=== PATIENT | female | born 1980 | race Caucasian/White ===

== ENCOUNTER 2019-01-06 08:57 | Emergency (ER) | payer OTHER ==
[2019-01-06 09:15] VITALS: TEMP 98.6
[2019-01-06] MEDS ORDERED: IPRATROPIUM-ALBUTEROL 3 ML NEB INHALATION STA (10:00)
--- NOTE | 2019-01-06 10:11 | ED ---
General Adult HPI - General Chief complaint: Shortness of Breath Stated complaint: CHEST PAIN Time Seen by Provider: 01/06/19 09:15 Source: patient, RN notes reviewed Mode of arrival: ambulatory Limitations: no limitations - History of Present Illness Initial comments: This is a 38-year-old female who presents emergency Department complaining of difficulty breathing. Patient states his been ongoing for 10 days and she was on a float down in the river. Patient states she thought she might swell some water. Patient also states she is around chemicals quite a bit and wonders if the chemicals causing his difficulty breathing. Patient states she had a history of asthma when she was a child but hasn't had it lately. Patient denies any fever chills or any sputum production. Patient states the symptoms seem to get worse when she is exerting herself. Patient denies any chest pain but when she exerted so she does get some chest tightness but has none at this time. Patient denies any calf tenderness or leg swelling. Patient denies any abdomi nal pain patient denies nausea vomiting diarrhea. Patient denies any back pain. - Related Data Home Medications Medication Instructions Recorded Confirmed Albuterol Inhaler [Ventolin Hfa 1 - 2 puff INHALATION RT-Q6H PRN 01/06/19 01/06/19 Inhaler] Multivitamins, Thera [Multivitamin 1 tab PO DAILY 01/06/19 01/06/19 (formulary)] Omeprazole 20 mg PO Q48H 01/06/19 01/06/19 Previous Rx's Medication Instructions Recorded Albuterol Inhaler [Ventolin Hfa 1 - 2 puff INHALATION Q6HR PRN #2 01/06/19 Inhaler] puff Allergies Allergy/AdvReac Type Severity Reaction Status Date / Time dexamethasone [From Decadron] Allergy Anaphylaxis Verified 01/06/19 09:42 NSAIDS (Non-Steroidal Allergy Swelling Verified 01/06/19 09:42 Anti-Inflamma Review of Systems ROS Statement: Those systems with pertinent positive or pertinent negative responses have been documented in the HPI. ROS Other: All systems not noted in ROS Statement are negative. Past Medical History Past Medical History: Asthma History of Any Multi-Drug Resistant Organisms: None Reported Past Surgical History: No Surgical Hx Reported Past Psychological History: Anxiety Smoking Status: Current every day smoker Past Alcohol Use History: None Reported Past Drug Use History: None Reported General Exam - General Exam Comments Initial Comments: GENERAL: Patient is well-developed and well-nourished. Patient is nontoxic and well- hydrated and is in mild distress. ENT: Neck is soft and supple. No significant lymphadenopathy is noted. Oropharynx is clear. Moist mucous membranes. Neck has full range of motion without eliciting any pain. EYES: The sclera were anicteric and conjunctiva were pink and moist. Extraocular movements were intact and pupils were equal round and reactive to light. Eyelids were unremarkable. PULMONARY: Unlabored respirations. Slightly decreased breath sounds. No audible rales rhonchi or wheezing was noted. CARDIOVASCULAR: There is a regular rate and rhythm without any murmurs gallops or rubs. ABDOMEN: Soft and nontender with normal bowel sounds. No palpable organomegaly was noted. There is no palpable pulsatile mass. SKIN: Skin is clear with no lesions or rashes and otherwise unremarkable. NEUROLOGIC: Patient is alert and oriented x3. Cranial nerves II through XII are grossly intact. Motor and sensory are also intact. Normal speech, volume and content. Symmetrical smile. MUSCULOSKELETAL: Normal extremities with adequate strength and full range of motion. No lower extremity swelling or edema. No calf tenderness. LYMPHATICS: No significant lymphadenopathy is noted PSYCHIATRIC: Normal psychiatric evaluation. Limitations: no limitations Course Vital Signs 01/06/19 01/06/19 01/06/19 09:11 10:53 11:03 Temperature 98.6 F Pulse Rate 90 92 97 Respiratory 20 Rate Blood Pressure 137/92 O2 Sat by Pulse 98 Oximetry Medical Decision Making - Medical Decision Making EKG shows normal sinus rhythm at 79 bpm WA interval 270 QRS is 86 QT interval 380 QTC is 435. Patient's EKG shows no ST segment elevation or depression or T- wave abdomen is noted. Chest x-ray showed no acute abnormality. Patient has a high white count at 17 I spoke with her about that she stated that she has had that for quite a while anytime she gets her blood drawn. Patient did receive albuterol and Atrovent in the emergency department and it seemed to help her significantly. - Lab Data Result diagrams: 01/06/19 11:36 01/06/19 11:36 Lab Results 01/06/19 01/06/19 01/06/19 Range/Units 11:36 11:36 11:36 WBC 17.5 H (3.8-10.6) k/uL RBC 5.52 H (3.80-5.40) m/uL Hgb 16.3 H (11.4-16.0) gm/dL Hct 49.0 H (34.0-46.0) % MCV 88.8 (80.0-100.0) fL MCH 29.5 (25.0-35.0) pg MCHC 33.2 (31.0-37.0) g/dL RDW 15.1 (11.5-15.5) % Plt Count 284 (150-450) k/uL Neutrophils % 63 % Lymphocytes % 29 % Monocytes % 4 % Eosinophils % 2 % Basophils % 1 % Neutrophils # 10.9 H (1.3-7.7) k/uL Lymphocytes # 5.1 H (1.0-4.8) k/uL Monocytes # 0.7 (0-1.0) k/uL Eosinophils # 0.4 (0-0.7) k/uL Basophils # 0.1 (0-0.2) k/uL PT 9.3 (9.0-12.0) sec INR 0.8 (<1.2) APTT 24.5 (22.0-30.0) sec D-Dimer 0.39 (<0.60) mg/L FEU Sodium 139 (137-145) mmol/L Potassium 4.7 (3.5-5.1) mmol/L Chloride 104 (98-107) mmol/L Carbon Dioxide 28 (22-30) mmol/L Anion Gap 7 mmol/L BUN 14 (7-17) mg/dL Creatinine 0.72 (0.52-1.04) mg/dL Est GFR (CKD-EPI)AfAm >90 (>60 ml/min/1.73 sqM) Est GFR (CKD-EPI)NonAf >90 (>60 ml/min/1.73 sqM) Glucose 95 (74-99) mg/dL Calcium 9.9 (8.4-10.2) mg/dL Total Bilirubin 0.3 (0.2-1.3) mg/dL AST 24 (14-36) U/L ALT 28 (9-52) U/L Alkaline Phosphatase 87 (38-126) U/L Troponin I (0.000-0.034) ng/mL Total Protein 7.6 (6.3-8.2) g/dL Albumin 4.4 (3.5-5.0) g/dL 01/06/19 Range/Units 11:36 WBC (3.8-10.6) k/uL RBC (3.80-5.40) m/uL Hgb (11.4-16.0) gm/dL Hct (34.0-46.0) % MCV (80.0-100.0) fL MCH (25.0-35.0) pg MCHC (31.0-37.0) g/dL RDW (11.5-15.5) % Plt Count (150-450) k/uL Neutrophils % % Lymphocytes % % Monocytes % % Eosinophils % % Basophils % % Neutrophils # (1.3-7.7) k/uL Lymphocytes # (1.0-4.8) k/uL Monocytes # (0-1.0) k/uL Eosinophils # (0-0.7) k/uL Basophils # (0-0.2) k/uL PT (9.0-12.0) sec INR (<1.2) APTT (22.0-30.0) sec D-Dimer (<0.60) mg/L FEU Sodium (137-145) mmol/L Potassium (3.5-5.1) mmol/L Chloride (98-107) mmol/L Carbon Dioxide (22-30) mmol/L Anion Gap mmol/L BUN (7-17) mg/dL Creatinine (0.52-1.04) mg/dL Est GFR (CKD-EPI)AfAm (>60 ml/min/1.73 sqM) Est GFR (CKD-EPI)NonAf (>60 ml/min/1.73 sqM) Glucose (74-99) mg/dL Calcium (8.4-10.2) mg/dL Total Bilirubin (0.2-1.3) mg/dL AST (14-36) U/L ALT (9-52) U/L Alkaline Phosphatase (38-126) U/L Troponin I <0.012 (0.000-0.034) ng/mL Total Protein (6.3-8.2) g/dL Albumin (3.5-5.0) g/dL Disposition Clinical Impression: Dyspnea Disposition: HOME SELF-CARE Instructions (If sedation given, give patient instructions): Dyspnea (ED) Prescriptions: Albuterol Inhaler [Ventolin Hfa Inhaler] 1 - 2 puff INHALATION Q6HR PRN #2 puff PRN Reason: Difficulty breathing Is patient prescribed a controlled substance at d/c from ED?: No Referrals: Jerman Soriano MD [Primary Care Provider] - 1-2 days Time of Disposition: 13:00
[2019-01-06 11:50] LABS: Basophils # (A) 0.1 k/uL (0-0.2); Basophils % (A) 1 %; Eosinophils # (A) 0.4 k/uL (0-0.7); Eosinophils % (A) 2 %; HGB 16.3 gm/dL (11.4-16.0); Lymphocytes # (A) 5.1 k/uL (1.0-4.8); Lymphocytes % (A) 29 %; MCH 29.5 pg (25.0-35.0); MCHC 33.2 g/dL (31.0-37.0); MCV 88.8 fL (80.0-100.0); Mean Platelet Volume 6.5; Monocytes # (A) 0.7 k/uL (0-1.0); Monocytes % (A) 4 %; Neutrophils # (A) 10.9 k/uL (1.3-7.7); Neutrophils % (A) 63 %; Platelet Count 284 k/uL (150-450); RBC 5.52 m/uL (3.80-5.40); RDW 15.1 % (11.5-15.5); WBC 17.5 k/uL (3.8-10.6)
[2019-01-06 11:57] LABS: ALT 28 U/L (9-52); AST 24 U/L (14-36); African American GFR (CKD) >90 (>60 ml/min/1.73 sqM); Albumin 4.4 g/dL (3.5-5.0); Alkaline Phosphatase 87 U/L (38-126); Anion Gap 7 mmol/L; Blood Urea Nitrogen 14 mg/dL (7-17); Calcium 9.9 mg/dL (8.4-10.2); Carbon Dioxide 28 mmol/L (22-30); Chloride 104 mmol/L (98-107); Glucose 95 mg/dL (74-99); Potassium 4.7 mmol/L (3.5-5.1); Sodium 139 mmol/L (137-145); Total Bilirubin 0.3 mg/dL (0.2-1.3); Total Protein 7.6 g/dL (6.3-8.2)
--- NOTE | 2019-01-06 11:58 | XR ---
EXAMINATION TYPE: XR chest 2V DATE OF EXAM: 01/06/2019 COMPARISON: NONE HISTORY: History of asthma and occupational exposure to chemicals with difficulty in breathing. TECHNIQUE: Frontal and lateral views of the chest are obtained. FINDINGS: Somewhat low lung volumes are present. There is no focal air space opacity, pleural effusi on, or pneumothorax seen. The cardiac silhouette size is within normal limits. The osseous structu res are intact. IMPRESSION: No suspicious acute pulmonary process.
[2019-01-06 12:05] LABS: D-Dimer 0.39 mg/L FEU (<0.60); INR 0.8 (<1.2); Partial Thromboplastin Time 24.5 sec (22.0-30.0); Prothrombin Time 9.3 sec (9.0-12.0)
[2019-01-06 13:27] VITALS: BP 146/88; PULSE 84; RESP 18
== END 2019-01-06 13:27 | disposition home or self-care (01) ==
LOC: EC 08:57
DX: R06.00 Dyspnea, unspecified (principal); R06.02 Shortness of breath; R07.89 Other chest pain; J45.909 Unspecified asthma, uncomplicated; F17.200 Nicotine dependence, unspecified, uncomplicated; Z79.899 Other long term (current) drug therapy; Z88.6 Allergy status to analgesic agent; Z88.8 Allergy status to other drugs, medicaments and biological substances
CPT/HCPCS: 36415; 71046; 80053; 84484; 85025; 85379; 85610; 85730; 93005; 94640; 99285

== ENCOUNTER 2019-01-25 21:14 | Emergency (ER) | payer OTHER ==
[2019-01-25] MEDS ORDERED: ONDANSETRON 4 MG/2 ML VIAL IVP STA (22:07)
[2019-01-25 22:23] LABS: Basophils # (A) 0.1 k/uL (0-0.2); Basophils % (A) 1 %; Eosinophils # (A) 0.4 k/uL (0-0.7); Eosinophils % (A) 3 %; HCT 47.4 % (34.0-46.0); Lymphocytes # (A) 4.6 k/uL (1.0-4.8); Lymphocytes % (A) 33 %; MCH 29.3 pg (25.0-35.0); MCHC 33.7 g/dL (31.0-37.0); MCV 87.1 fL (80.0-100.0); Mean Platelet Volume 6.9; Monocytes # (A) 0.6 k/uL (0-1.0); Monocytes % (A) 4 %; Neutrophils # (A) 7.9 k/uL (1.3-7.7); Neutrophils % (A) 57 %; Platelet Count 270 k/uL (150-450); RBC 5.44 m/uL (3.80-5.40); RDW 14.9 % (11.5-15.5); WBC 13.7 k/uL (3.8-10.6)
[2019-01-25 22:27] LABS: Appearance,Urine Cloudy (Clear); Bacteria,Urine Rare /hpf; Bilirubin,Urine Negative (Negative); Blood,Urine Negative (Negative); Color,Urine Yellow; Glucose,Urine (UA) Negative (Negative); Ketones,Urine Negative (Negative); Leukocyte Esterase,Urine Negative (Negative); Mucus,Urine Rare /hpf; Nitrite,Urine Negative (Negative); PH, Urine 8.5 (5.0-8.0); Protein,Urine Trace (Negative); RBC,Urine 7 /hpf (0-5); Renal Epithelial Cells,Urine 3 /hpf (0); Specific Gravity,Urine 1.018 (1.001-1.035); Squamous Epithelial Cell,Urine 11 /hpf (0-4); Urobilinogen,Urine <2.0 mg/dL (<2.0); WBC,Urine 1 /hpf (0-5)
[2019-01-25 22:31] LABS: ALT 42 U/L (9-52); AST 38 U/L (14-36); African American GFR (CKD) >90 (>60 ml/min/1.73 sqM); Albumin 4.5 g/dL (3.5-5.0); Alkaline Phosphatase 69 U/L (38-126); Amylase 52 U/L (30-110); Anion Gap 11 mmol/L; Blood Urea Nitrogen 11 mg/dL (7-17); Calcium 9.7 mg/dL (8.4-10.2); Carbon Dioxide 24 mmol/L (22-30); Chloride 106 mmol/L (98-107); Glucose 105 mg/dL (74-99); Potassium 4.3 mmol/L (3.5-5.1); Sodium 141 mmol/L (137-145); Total Bilirubin 0.3 mg/dL (0.2-1.3); Total Protein 7.6 g/dL (6.3-8.2)
[2019-01-25] MEDS ORDERED: HYDROmorphone 0.5 MG/0.5 ML SYRINGE IVP STA (22:57)
--- NOTE | 2019-01-25 23:28 | US ---
EXAM: US Abdomen Limited, Right Upper Quadrant CLINICAL HISTORY: ITS.REASON US Reason: abdominal pain TECHNIQUE: Real-time ultrasound of the right upper quadrant with image documentation. COMPARISON: No relevant prior studies available. FINDINGS: Liver: Increased echogenicity. No mass. No intrahepatic bile duct dilation. Gallbladder: No gallstones. No pericholecystic fluid. No gallbladder wall thickening. Common bile duct: Unremarkable. No stones. No dilation. Pancreas: Obscured. Right kidney: No stones. No solid mass. No hydronephrosis. IMPRESSION: Hepatic steatosis.
[2019-01-26 00:06] VITALS: RESP 18
--- NOTE | 2019-01-26 01:29 | CT ---
EXAM: CT Abdomen and Pelvis With Intravenous Contrast CLINICAL HISTORY: ITS.REASON CT Reason: RUQ pain, n/v TECHNIQUE: Axial computed tomography images of the abdomen and pelvis with intravenous contrast. CTDI is 18 mGy and DLP is 1041 mGy-cm. This CT exam was performed using one or more of the following dose reduction techniques: automated exposure control, adjustment of the mA and/or kV according to patient size, and/or use of iterative reconstruction technique. COMPARISON: 01/25/19 ultrasound FINDINGS: Lung bases: No mass. No consolidation. ABDOMEN: Liver: Enlarged with steatosis. Gallbladder and bile ducts: 2 cm round lesion at the tip of the gallbladder fundus (series 201 image 37 and 38). Pancreas: Unremarkable. Spleen: Unremarkable. Adrenals: Unremarkable. Kidneys and ureters: No hydronephrosis. Stomach and bowel: No bowel obstruction. No bowel wall thickening. PELVIS: Appendix: No evidence of appendicitis. Bladder: Unremarkable. Reproductive: Unremarkable. ABDOMEN and PELVIS: Intraperitoneal space: Unremarkable. Bones/joints: No acute fractures. Mild degenerative changes with vacuum phenomenon at L4-5. Mild disc bulging. No signal can spinal canal stenosis. Soft tissues: Unremarkable. Vasculature: No abdominal aortic aneurysm. Lymph nodes: No enlarged lymph nodes. IMPRESSION: 1. Hepatomegaly with steatosis. 2. At the tip gallbladder fundus, there is a 2 cm round lesion. This may be a lesion Versus a phrygian cap/fold. This was not described on the ultrasound. Indeterminate process. Recommend ultrasound in 6 months as potential follow-up. 3. No biliary dilatation. No acute findings.
--- NOTE | 2019-01-26 01:49 | ED ---
Abdominal Pain HPI - General Chief Complaint: Abdominal Pain Stated Complaint: Abd pain Time Seen by Provider: 01/25/19 21:27 Source: patient Mode of arrival: ambulatory Limitations: no limitations - History of Present Illness Initial Comments: Patient is a 38-year-old female presenting to the emergency department with a chief complaint of abdominal pain. Patient reports intermittent epigastric pain for approximately 15 years which has increased over the last 4 days. The pain has been coming and going. Patient reports the pain occurs specifically after oral intake of solids or liquids. Patient reports she develops a "hard ball" in the epigastric region and then it is disappears. Patient reports the pain is alleviated in position and exacerbated with any other movement. Patient reports nausea over the past 2 days with one episode of vomiting. Patient denies any diarrhea. Patient denies hemoptysis, hematochezia or melena. Patien t denies any vaginal discharge or bleeding. Patient reports she was diagnosed with a "gallbladder problem" about 15 years ago and there was plans to remove the gallbladder multiple times but it was not performed. Patient reports a anytime she develops an acute abdominal pain is likely to be the gallbladder. - Related Data Home Medications Medication Instructions Recorded Confirmed Albuterol Inhaler [Ventolin Hfa 1 - 2 puff INHALATION RT-Q6H PRN 01/06/1912/12 Inhaler] Multivitamins, Thera [Multivitamin 1 tab PO DAILY 01/06/19 01/06/19 (formulary)] Omeprazole 20 mg PO Q48H 01/06/19 01/06/19 Previous Rx's Medication Instructions Recorded Albuterol Inhaler [Ventolin Hfa 1 - 2 puff INHALATION Q6HR PRN #2 01/06/19 Inhaler] puff Dicyclomine [Bentyl] 20 mg PO TID #30 tablet 01/26/19 Ondansetron Odt [Zofran Odt] 4 mg PO Q8HR PRN #20 tab 01/26/19 Allergies Allergy/AdvReac Type Severity Reaction Status Date / Time dexamethasone [From Decadron] Allergy Anaphylaxis Verified 01/25/19 21:18 NSAIDS (Non-Steroidal Allergy Swelling Verified 01/25/19 21:18 Anti-Inflamma Review of Systems ROS Statement: Those systems with pertinent positive or pertinent negative responses have been documented in the HPI. ROS Other: All systems not noted in ROS Statement are negative. Past Medical History Past Medical History: Asthma History of Any Multi-Drug Resistant Organisms: None Reported Past Surgical History: No Surgical Hx Reported Past Psychological History: Anxiety Smoking Status: Current every day smoker Past Alcohol Use History: None Reported Past Drug Use History: None Reported General Exam Limitations: no limitations General appearance: alert, in no apparent distress Head exam: Present: atraumatic, normocephalic, normal inspection Eye exam: Present: normal appearance, PERRL, EOMI Pupils: Present: normal accommodation ENT exam: Present: normal exam, normal oropharynx, mucous membranes moist, TM's normal bilaterally, normal external ear exam Neck exam: Present: normal inspection, full ROM Respiratory exam: Present: normal lung sounds bilaterally Cardiovascular Exam: Present: regular rate, normal rhythm, normal heart sounds GI/Abdominal exam: Present: soft, tenderness (Epigastric. Positive Atkinson sign.), normal bowel sounds. Absent: guarding, rebound, mass Extremities exam: Present: normal inspection, full ROM Back exam: Present: normal inspection, full ROM. Absent: CVA tenderness (R), CVA tenderness (L) Neurological exam: Present: alert, oriented X3 Psychiatric exam: Present: normal affect, normal mood Skin exam: Present: warm, intact, normal color Course Vital Signs 01/25/19 01/26/19 01/26/19 21:16 00:04 02:33 Temperature 98.5 F 98.6 F Pulse Rate 88 72 65 Respiratory 20 18 18 Rate Blood Pressure 120/85 120/75 109/69 O2 Sat by Pulse 98 97 97 Oximetry Medical Decision Making - Medical Decision Making Patient is a 38-year-old male presenting to emergency Department with a chief complaint of abdominal pain. Patient has had gallbladder-related problems for approximately 15 years which is only been increased over the last 4 days. Patient reports pain is located in the epigastric region and exacerbated by any by mouth fluid or solid intake. Patient does report nausea and 1 episode of vomiting. Patient was given fluids, antiemetics and analgesia. CBC is indicative of mild leukocytosis. CMP is unremarkable. UA is unremarkable except for mild elevation in pH. Right upper quadrant ultrasound is unremarkable. CT abdomen and pelvis is indicative of hepatomegaly with steatosis. Also there is a 2 cm lesion at the fundus of the gallbladder which c ould also be a phyringian cap. I suspect the patient to have the pain due to the gallbladder pathology. On reevaluation patient reports she feels better and is ready go home. Patient given Bentyl Tylenol 3 and Zofran. Patient advised to follow-up with Gen. surgery. Strict return parameters were thoroughly discussed with patient was understanding and agreeable. Case discussed physician. - Lab Data Result diagrams: 01/25/19 22:10 01/25/19 22:10 Lab Results 01/25/19 01/25/19 01/25/19 Range/Units 22:10 22:10 22:10 WBC 13.7 H (3.8-10.6) k/uL RBC 5.44 H (3.80-5.40) m/uL Hgb 16.0 (11.4-16.0) gm/dL Hct 47.4 H (34.0-46.0) % MCV 87.1 (80.0-100.0) fL MCH 29.3 (25.0-35.0) pg MCHC 33.7 (31.0-37.0) g/dL RDW 14.9 (11.5-15.5) % Plt Count 270 (150-450) k/uL Neutrophils % 57 % Lymphocytes % 33 % Monocytes % 4 % Eosinophils % 3 % Basophils % 1 % Neutrophils # 7.9 H (1.3-7.7) k/uL Lymphocytes # 4.6 (1.0-4.8) k/uL Monocytes # 0.6 (0-1.0) k/uL Eosinophils # 0.4 (0-0.7) k/uL Basophils # 0.1 (0-0.2) k/uL Sodium 141 (137-145) mmol/L Potassium 4.3 (3.5-5.1) mmol/L Chloride 106 (98-107) mmol/L Carbon Dioxide 24 (22-30) mmol/L Anion Gap 11 mmol/L BUN 11 (7-17) mg/dL Creatinine 0.71 (0.52-1.04) mg/dL Est GFR (CKD-EPI)AfAm >90 (>60 ml/min/1.73 sqM) Est GFR (CKD-EPI)NonAf >90 (>60 ml/min/1.73 sqM) Glucose 105 H (74-99) mg/dL Calcium 9.7 (8.4-10.2) mg/dL Total Bilirubin 0.3 (0.2-1.3) mg/dL AST 38 H (14-36) U/L ALT 42 (9-52) U/L Alkaline Phosphatase 69 (38-126) U/L Total Protein 7.6 (6.3-8.2) g/dL Albumin 4.5 (3.5-5.0) g/dL Amylase 52 (30-110) U/L Lipase 85 (23-300) U/L Urine Color Yellow Urine Appearance Cloudy H (Clear) Urine pH 8.5 H (5.0-8.0) Ur Specific [place] 1.018 (1.001-1.035) Urine Protein Trace H (Negative) Urine Glucose (UA) Negative (Negative) Urine Ketones Negative (Negative) Urine Blood Negative (Negative) Urine Nitrite Negative (Negative) Urine Bilirubin Negative (Negative) Urine Urobilinogen <2.0 (<2.0) mg/dL Ur Leukocyte Esterase Negative (Negative) Urine RBC 7 H (0-5) /hpf Urine WBC 1 (0-5) /hpf Ur Squamous Epith Cells 11 H (0-4) /hpf Ur Renal Epithelial Cell 3 (0) /hpf Urine Bacteria Rare H (None) /hpf Urine Mucus Rare H (None) /hpf Urine HCG, Qual (Not Detectd) 01/25/19 Range/Units 22:10 WBC (3.8-10.6) k/uL RBC (3.80-5.40) m/uL Hgb (11.4-16.0) gm/dL Hct (34.0-46.0) % MCV (80.0-100.0) fL MCH (25.0-35.0) pg MCHC (31.0-37.0) g/dL RDW (11.5-15.5) % Plt Count (150-450) k/uL Neutrophils % % Lymphocytes % % Monocytes % % Eosinophils % % Basophils % % Neutrophils # (1.3-7.7) k/uL Lymphocytes # (1.0-4.8) k/uL Monocytes # (0-1.0) k/uL Eosinophils # (0-0.7) k/uL Basophils # (0-0.2) k/uL Sodium (137-145) mmol/L Potassium (3.5-5.1) mmol/L Chloride (98-107) mmol/L Carbon Dioxide (22-30) mmol/L Anion Gap mmol/L BUN (7-17) mg/dL Creatinine (0.52-1.04) mg/dL Est GFR (CKD-EPI)AfAm (>60 ml/min/1.73 sqM) Est GFR (CKD-EPI)NonAf (>60 ml/min/1.73 sqM) Glucose (74-99) mg/dL Calcium (8.4-10.2) mg/dL Total Bilirubin (0.2-1.3) mg/dL AST (14-36) U/L ALT (9-52) U/L Alkaline Phosphatase (38-126) U/L Total Protein (6.3-8.2) g/dL Albumin (3.5-5.0) g/dL Amylase (30-110) U/L Lipase (23-300) U/L Urine Color Urine Appearance (Clear) Urine pH (5.0-8.0) Ur Specific [place] (1.001-1.035) Urine Protein (Negative) Urine Glucose (UA) (Negative) Urine Ketones (Negative) Urine Blood (Negative) Urine Nitrite (Negative) Urine Bilirubin (Negative) Urine Urobilinogen (<2.0) mg/dL Ur Leukocyte Esterase (Negative) Urine RBC (0-5) /hpf Urine WBC (0-5) /hpf Ur Squamous Epith Cells (0-4) /hpf Ur Renal Epithelial Cell (0) /hpf Urine Bacteria (None) /hpf Urine Mucus (None) /hpf Urine HCG, Qual Not Detected (Not Detectd) Disposition Clinical Impression: RUQ abdominal pain Disposition: HOME SELF-CARE Condition: Stable Instructions (If sedation given, give patient instructions): Abdominal Pain (ED) Additional Instructions: Please take prescribed medication as directed. Please follow up with a general surgeon. Please return to emergency department if symptoms worsen. Prescriptions: Dicyclomine [Bentyl] 20 mg PO TID #30 tablet Ondansetron Odt [Zofran Odt] 4 mg PO Q8HR PRN #20 tab PRN Reason: Nausea Is patient prescribed a controlled substance at d/c from ED?: No Referrals: Jerman Soriano MD [Primary Care Provider] - 1-2 days Krishna Tran MD [Medical Doctor] - 1-2 days Zack Paul MD [STAFF PHYSICIAN] - 1-2 days Rebeca Costello MD [STAFF PHYSICIAN] - 1-2 days Time of Disposition: 02:13
[2019-01-26] MEDS ORDERED: HYDROmorphone 0.5 MG/0.5 ML SYRINGE IVP STA (02:06)
[2019-01-26] MEDS ORDERED: ONDANSETRON 4 MG/2 ML VIAL IVP STA (02:06)
[2019-01-26] MEDS ORDERED: ACET/COD 300 MG/30 MG STARTER PACK 6 TAB BTL PO STA (02:09)
[2019-01-26] MEDS ORDERED: ONDANSETRON 4 MG ODT STARTER PACK 2 TAB BTL PO STA (02:09)
[2019-01-26 02:34] VITALS: BP 109/69; PULSE 65; TEMP 98.6
== END 2019-01-26 02:38 | disposition home or self-care (01) ==
LOC: EC 21:14
DX: R11.2 Nausea with vomiting, unspecified (principal); D72.829 Elevated white blood cell count, unspecified; J45.909 Unspecified asthma, uncomplicated; F17.200 Nicotine dependence, unspecified, uncomplicated; Z79.899 Other long term (current) drug therapy; Z88.8 Allergy status to other drugs, medicaments and biological substances; Z88.6 Allergy status to analgesic agent
CPT/HCPCS: 36415; 80053; 82150; 83690; 85025; 81001; 81025; 76705; 74177; 99284; 96374; 96375; 96376 ×2; J2405 ×2; S0119; J1170 ×2; Q9967

== ENCOUNTER 2019-02-17 21:46 | Emergency (ER) | payer OTHER ==
[2019-02-17] MEDS ORDERED: SODIUM CHLORIDE 0.9% 1,000 ML IV ONE ×2 (22:22→23:07)
[2019-02-17] MEDS ORDERED: FAMOTIDINE 20 MG/2 ML VIAL IV STA (22:22)
[2019-02-17] MEDS ORDERED: diphenhydrAMINE 50 MG/ML 1 ML VIAL IVP STA (22:22)
--- NOTE | 2019-02-17 22:27 | ED ---
Allergic Reaction HPI - General Chief complaint: Allergic Reaction Stated complaint: allergic reaction Time Seen by Provider: 02/17/19 21:52 Source: patient, RN notes reviewed, old records reviewed Mode of arrival: ambulatory Limitations: no limitations - History of Present Illness Initial Comments: This patient's a 38-year-old female presents rest tremor today for concerns for ALLERGIC reaction related to an IM Decadron shot she received yesterday at 4 PM. Patient reportedly had a red face, following some chest warmness in and just general discomfort. Patient reports that he received multiple steroid injections in her feet due to tendinitis. Patient states that she's had a known history of reactions to steroids and does not know why she was given this. Patient complains of feeling dry mouth, and very thirsty. Patient states that she hasn't had any Benadryl.Patient denies any recent fever, chills, shortness of breath, chest pain, back pain, abdominal pain, nausea vomiting, numbness or tingling, dysuria or hematuria, constipation or diarrhea, headac or any other current symptoms - Related Data Home Medications Medication Instructions Recorded Confirmed Albuterol Inhaler [Ventolin Hfa 1 - 2 puff INHALATION RT-Q6H PRN 01/06/19 01/06/19 Inhaler] Multivitamins, Thera [Multivitamin 1 tab PO DAILY 01/06/19 01/06/19 (formulary)] Omeprazole 20 mg PO Q48H 01/06/19 01/06/19 Previous Rx's Medication Instructions Recorded Albuterol Inhaler [Ventolin Hfa 1 - 2 puff INHALATION Q6HR PRN #2 01/06/19 Inhaler] puff Dicyclomine [Bentyl] 20 mg PO TID #30 tablet 01/26/19 Ondansetron Odt [Zofran Odt] 4 mg PO Q8HR PRN #20 tab 01/26/19 Allergies Allergy/AdvReac Type Severity Reaction Status Date / Time dexamethasone [From Decadron] Allergy Anaphylaxis Verified 02/17/19 21:50 NSAIDS (Non-Steroidal Allergy Swelling Verified 02/17/19 21:50 Anti-Inflamma Review of Systems ROS Statement: Those systems with pertinent positive or pertinent negative responses have been documented in the HPI. ROS Other: All systems not noted in ROS Statement are negative. Past Medical History Past Medical History: Asthma History of Any Multi-Drug Resistant Organisms: None Reported Past Surgical History: No Surgical Hx Reported Past Psychological History: Anxiety Smoking Status: Current every day smoker Past Alcohol Use History: None Reported Past Drug Use History: None Reported General Exam - General Exam Comments Initial Comments: 38-year-old female. Flushed face. Patient appears somewhat anxious. General: Well appearing, well nourished, in no distress. Oriented x 3, normal mood and affect . Ambulating without difficulty. Skin: Good turgor, flushed erythematous face. Hair: Normal texture and distribution. HEENT: Head: Normocephalic, atraumatic, no visible or palpable masses, depre ssions, or scaring. Eyes: Visual acuity intact, conjunctiva clear, sclera non-icteric, EOM intact, PERRL. Ears: EACs clear, TMs translucent & cone of light visualized. hearing intact. Nose: No external lesions, mucosa non-inflamed, septum and turbinates normal Mouth: Mucous membranes moist, no mucosal lesions. Teeth/Gums: No obvious caries or periodontal disease. No gingival inflammation or significant resorption. Pharynx: Mucosa non-inflamed, no tonsillar hypertrophy or exudate Neck: Supple, without lesions, bruits, or adenopathy, thyroid non-enlarged and non-tender Heart: No cardiomegaly or thrills; regular rate and rhythm, no murmur or gallop Lungs: Clear to auscultation and percussion Abdomen: Bowel sounds normal, no tenderness, organomegaly, masses, or hernia Back: Spine normal without deformity or tenderness, no CVA tenderness Musculoskeletal: Normal gait and station. No misalignment, asymmetry, crepitation, defects, tenderness, masses, effusions, decreased range of motion, instability, atrophy or abnormal strength or tone in the head, neck, spine, ribs, pelvis or extremities. Neurologic: CN 2-12 normal. Sensation to pain, touch, and proprioception normal. DTRs normal in upper and lower extremities. No pathologic reflexes. Psychiatric: Oriented X3, intact recent and remote memory, judgment and insight, normal mood and affect. Limitations: no limitations Course Vital Signs 02/17/19 02/17/19 02/18/19 21:48 22:50 00:50 Temperature 97.9 F 98.2 F Pulse Rate 103 H 95 82 Respiratory 20 18 18 Rate Blood Pressure 131/73 134/87 109/60 O2 Sat by Pulse 97 98 99 Oximetry Medical Decision Making - Medical Decision Making Patient is a 38-year-old female presents for concern for reaction related to IM steroids. She had injections yesterday for bilateral feet pain and tendinitis. Patient with complaint of general flushed feeling generally feeling unwell. She states she is very thirsty. Patient's given an IV fluids and lab work obtained. Patient's labs show evidence of leukocytosis. Likely related to steroid use. EKG shows no acute changes. Should have an elevated blood glucose of 260. This also could be related to the recent steroid use. She's not a known history of diabetes. She also does have "glucose in her urine. I discussed the findings with the Patient. Discussed that she needs a prompt follow-up with her primary care doctor to have this rechecked on steroids or out of her system. Discussed the importance of hydration. She is given a 2 L bolus while in the ED and Benadryl. She states that she feels much better at this time. I discussed that if she had any further complaints return to the ER for reevaluation. WERE ANSWERED. - Lab Data Result diagrams: 02/17/19 22:38 02/17/19 22:38 Lab Results 02/17/19 02/17/19 02/17/19 Range/Units 00:30 22:38 22:38 WBC 29.2 H (3.8-10.6) k/uL RBC 5.11 (3.80-5.40) m/uL Hgb 15.1 (11.4-16.0) gm/dL Hct 47.0 H (34.0-46.0) % MCV 92.1 D (80.0-100.0) fL MCH 29.5 (25.0-35.0) pg MCHC 32.1 (31.0-37.0) g/dL RDW 13.1 (11.5-15.5) % Plt Count 290 (150-450) k/uL Neutrophils % 81 % Lymphocytes % 11 % Monocytes % 4 % Eosinophils % 1 % Basophils % 1 % Neutrophils # 23.7 H (1.3-7.7) k/uL Lymphocytes # 3.3 (1.0-4.8) k/uL Monocytes # 1.3 H (0-1.0) k/uL Eosinophils # 0.2 (0-0.7) k/uL Basophils # 0.4 H (0-0.2) k/uL PT (9.0-12.0) sec INR (<1.2) APTT (22.0-30.0) sec Sodium 137 (137-145) mmol/L Potassium 4.3 (3.5-5.1) mmol/L Chloride 106 (98-107) mmol/L Carbon Dioxide 21 L (22-30) mmol/L Anion Gap 10 mmol/L BUN 17 (7-17) mg/dL Creatinine 0.81 (0.52-1.04) mg/dL Est GFR (CKD-EPI)AfAm >90 (>60 ml/min/1.73 sqM) Est GFR (CKD-EPI)NonAf >90 (>60 ml/min/1.73 sqM) Glucose 265 H (74-99) mg/dL Calcium 9.5 (8.4-10.2) mg/dL Magnesium 2.1 (1.6-2.3) mg/dL Total Bilirubin 0.2 (0.2-1.3) mg/dL AST 25 (14-36) U/L ALT 24 (9-52) U/L Alkaline Phosphatase 98 (38-126) U/L Troponin I (0.000-0.034) ng/mL Total Protein 7.1 (6.3-8.2) g/dL Albumin 4.2 (3.5-5.0) g/dL Urine Color Light Yellow Urine Appearance Clear (Clear) Urine pH 6.5 (5.0-8.0) Ur Specific [place] 1.010 (1.001-1.035) Urine Protein Negative (Negative) Urine Glucose (UA) 3+ H (Negative) Urine Ketones Negative (Negative) Urine Blood Negative (Negative) Urine Nitrite Negative (Negative) Urine Bilirubin Negative (Negative) Urine Urobilinogen <2.0 (<2.0) mg/dL Ur Leukocyte Esterase Negative (Negative) 02/17/19 02/17/19 Range/Units 22:38 22:38 WBC (3.8-10.6) k/uL RBC (3.80-5.40) m/uL Hgb (11.4-16.0) gm/dL Hct (34.0-46.0) % MCV (80.0-100.0) fL MCH (25.0-35.0) pg MCHC (31.0-37.0) g/dL RDW (11.5-15.5) % Plt Count (150-450) k/uL Neutrophils % % Lymphocytes % % Monocytes % % Eosinophils % % Basophils % % Neutrophils # (1.3-7.7) k/uL Lymphocytes # (1.0-4.8) k/uL Monocytes # (0-1.0) k/uL Eosinophils # (0-0.7) k/uL Basophils # (0-0.2) k/uL PT 9.5 (9.0-12.0) sec INR 0.9 (<1.2) APTT 23.3 (22.0-30.0) sec Sodium (137-145) mmol/L Potassium (3.5-5.1) mmol/L Chloride (98-107) mmol/L Carbon Dioxide (22-30) mmol/L Anion Gap mmol/L BUN (7-17) mg/dL Creatinine (0.52-1.04) mg/dL Est GFR (CKD-EPI)AfAm (>60 ml/min/1.73 sqM) Est GFR (CKD-EPI)NonAf (>60 ml/min/1.73 sqM) Glucose (74-99) mg/dL Calcium (8.4-10.2) mg/dL Magnesium (1.6-2.3) mg/dL Total Bilirubin (0.2-1.3) mg/dL AST (14-36) U/L ALT (9-52) U/L Alkaline Phosphatase (38-126) U/L Troponin I <0.012 (0.000-0.034) ng/mL Total Protein (6.3-8.2) g/dL Albumin (3.5-5.0) g/dL Urine Color Urine Appearance (Clear) Urine pH (5.0-8.0) Ur Specific [place] (1.001-1.035) Urine Protein (Negative) Urine Glucose (UA) (Negative) Urine Ketones (Negative) Urine Blood (Negative) Urine Nitrite (Negative) Urine Bilirubin (Negative) Urine Urobilinogen (<2.0) mg/dL Ur Leukocyte Esterase (Negative) 02/18/19 0 02/18/19 00:24 EKG shows Normal sinus rhtym. Normal EKG. Vent rate 84 bpm. NH interval 180 ms. QRS duration 96 ms. Qt/Qtc 390/[address] elevation. No T wave inversion. - Radiology Data Radiology results: report reviewed Disposition Clinical Impression: Leukocytosis, Hyperglycemia, Allergic reaction caused by a drug Disposition: HOME SELF-CARE Condition: Good Instructions (If sedation given, give patient instructions): General Allergic Reaction (ED) Additional Instructions: Patient started drinking plenty of fluids. Patient should take Benadryl every 4-6 hours. Follow-up with your primary care doctor. Return to emergency department if any alarming signs or symptoms occur. Is patient prescribed a controlled substance at d/c from ED?: No Referrals: Jerman Soriano MD [Primary Care Provider] - 1-2 days Time of Disposition: 01:08
[2019-02-17 22:46] LABS: Basophils # (A) 0.4 k/uL (0-0.2); Basophils % (A) 1 %; Eosinophils # (A) 0.2 k/uL (0-0.7); Eosinophils % (A) 1 %; HGB 15.1 gm/dL (11.4-16.0); Lymphocytes # (A) 3.3 k/uL (1.0-4.8); Lymphocytes % (A) 11 %; MCH 29.5 pg (25.0-35.0); MCHC 32.1 g/dL (31.0-37.0); Mean Platelet Volume 6.8; Monocytes # (A) 1.3 k/uL (0-1.0); Monocytes % (A) 4 %; Neutrophils # (A) 23.7 k/uL (1.3-7.7); Neutrophils % (A) 81 %; Platelet Count 290 k/uL (150-450); RBC 5.11 m/uL (3.80-5.40); RDW 13.1 % (11.5-15.5); WBC 29.2 k/uL (3.8-10.6)
[2019-02-17 22:55] LABS: ALT 24 U/L (9-52); AST 25 U/L (14-36); African American GFR (CKD) >90 (>60 ml/min/1.73 sqM); Albumin 4.2 g/dL (3.5-5.0); Alkaline Phosphatase 98 U/L (38-126); Anion Gap 10 mmol/L; Blood Urea Nitrogen 17 mg/dL (7-17); Calcium 9.5 mg/dL (8.4-10.2); Carbon Dioxide 21 mmol/L (22-30); Chloride 106 mmol/L (98-107); Glucose 265 mg/dL (74-99); Magnesium 2.1 mg/dL (1.6-2.3); Potassium 4.3 mmol/L (3.5-5.1); Sodium 137 mmol/L (137-145); Total Bilirubin 0.2 mg/dL (0.2-1.3); Total Protein 7.1 g/dL (6.3-8.2)
[2019-02-17 22:57] LABS: INR 0.9 (<1.2); MCV 92.1 fL (80.0-100.0); Partial Thromboplastin Time 23.3 sec (22.0-30.0); Prothrombin Time 9.5 sec (9.0-12.0)
--- NOTE | 2019-02-17 23:14 | XR ---
EXAMINATION TYPE: XR chest 2V DATE OF EXAM: 02/17/2019 COMPARISON: 01/06/2019 HISTORY: Chest pain TECHNIQUE: Frontal and lateral views of the chest are obtained. FINDINGS: Heart and mediastinum are normal. Lungs are clear. Diaphragm is normal. Bony thorax appear s normal. There are chest leads. IMPRESSION: Normal chest. No change.
[2019-02-18 00:50] LABS: Appearance,Urine Clear (Clear); Bilirubin,Urine Negative (Negative); Blood,Urine Negative (Negative); Color,Urine Light Yellow; Glucose,Urine (UA) 3+ (Negative); Ketones,Urine Negative (Negative); Leukocyte Esterase,Urine Negative (Negative); Nitrite,Urine Negative (Negative); PH, Urine 6.5 (5.0-8.0); Protein,Urine Negative (Negative); Urobilinogen,Urine <2.0 mg/dL (<2.0)
[2019-02-18 01:21] VITALS: RESP 18; TEMP 98.2
[2019-02-18 01:22] VITALS: BP 109/60; PULSE 82
== END 2019-02-18 01:25 | disposition home or self-care (01) ==
LOC: EC 21:46
DX: D72.829 Elevated white blood cell count, unspecified (principal); T38.0X5A Adverse effect of glucocorticoids and synthetic analogues, initial encounter; R73.9 Hyperglycemia, unspecified; J45.909 Unspecified asthma, uncomplicated; F17.200 Nicotine dependence, unspecified, uncomplicated; Z79.899 Other long term (current) drug therapy; Z88.6 Allergy status to analgesic agent; Z88.8 Allergy status to other drugs, medicaments and biological substances
CPT/HCPCS: 36415; 93005; 80053; 83735; 84484; 85025; 85610; 85730; 81003; 71046; 99284; 96374; 96375; 96361 ×2; J1200

== ENCOUNTER → 2019-02-21 | Outpatient (CLI) | payer OTHER ==
--- NOTE | 2019-02-21 16:30 | NM ---
Nuclear medicine hepatobiliary scan. HISTORY: Pain. DOSAGE: The patient received 8 ounces of ensure plus and 4.7 mCi of Technetium 99m Choletec. FINDINGS: There is normal hepatic extraction. The gallbladder is seen by 20 minutes. There is bilia ry to bowel clearance by 20 minutes. Ejection fraction is 73%. IMPRESSION: 1. Normal hepatobiliary exam
== END | disposition home or self-care (01) ==
LOC: RADNMMAIN 11:54
PROVIDERS: ATTEND Family Medicine
DX: R10.9 Unspecified abdominal pain (principal)
CPT/HCPCS: 78226; A9537

== ENCOUNTER → 2019-06-23 | Outpatient (CLI) | payer OTHER ==
--- NOTE | 2019-06-24 07:44 | ECHOF ---
Referral Reason:R07.89 Other chest pain MEASUREMENTS -------- HEIGHT: 165.1 cm WEIGHT: 106.6 kg BP: RVIDd: 3.4 cm (< 3.3) IVSd: 1.4 cm (0.6 - 1.1) LVIDd: 3.8 cm (3.9 - 5.3) LVPWd: 0.9 cm (0.6 - 1.1) IVSs: 1.7 cm LVIDs: 2.2 cm LVPWs: 1.6 cm LA Diam: 3.3 cm (2.7 - 3.8) LAESV Index (A-L): 26.04 ml/m Ao Diam: 2.7 cm (2.0 - 3.7) AV Cusp: 1.9 cm (1.5 - 2.6) LA Diam: 3.9 cm (2.7 - 3.8) MV EXCURSION: 20.130 mm (> 18.000) MV EF SLOPE: 92 mm/s (70 - 150) EPSS: 0.3 cm MV E Doc: 0.56 m/s MV DecT: 251 ms MV A Doc: 0.63 m/s MV E/A Ratio: 0.89 RAP: 5.00 mmHg RVSP: 12.23 mmHg FINDINGS -------- Sinus rhythm. This was a technically adequate study. The left ventricular size is normal. There is moderate concentric left ventricular hypertrophy. O verall left ventricular systolic function is normal with, an EF between 55 - 60 %. The diastolic fi lling pattern is normal for the age of the patient 8.58. The right ventricle is normal in size. The left atrial size is normal. Normal LA size by volume 22+/-6 ml/m2. The right atrial size is normal. The aortic valve is trileaflet, and appears structurally normal. No aortic stenosis or regurgitation. Mild mitral annular calcification present. Mild mitral regurgitation is present. Mild tricuspid regurgitation present. Right ventricular systolic pressure is normal at < 35 mmHg. There is no evidence of pulmonary hypertension. There is no pulmonic regurgitation present. The aortic root size is normal. There is no pericardial effusion. CONCLUSIONS -------- 1. Sinus rhythm. 2. This was a technically adequate study. 3. The left ventricular size is normal. 4. There is moderate concentric left ventricular hypertrophy. 5. Overall left ventricular systolic function is normal with, an EF between 55 - 60 %. 6. The diastolic filling pattern is normal for the age of the patient 8.58 7. The right ventricle is normal in size. 8. The left atrial size is normal. 9. Normal LA size by volume 22+/-6 ml/m2. 10. The right atrial size is normal. 11. The aortic valve is trileaflet, and appears structurally normal. No aortic stenosis or regurgitat ion. 12. Mild mitral annular calcification present. 13. Mild mitral regurgitation is present. 14. Mild tricuspid regurgitation present. 15. Right ventricular systolic pressure is normal at < 35 mmHg. 16. There is no evidence of pulmonary hypertension. 17. There is no pulmonic regurgitation present. 18. The aortic root size is normal. 19. There is no pericardial effusion. HOU[employer]KEEPING CLEANER: Kayleigh Infante RDCS
== END | disposition home or self-care (01) ==
LOC: RADECHMAIN 15:34
PROVIDERS: ATTEND Family Medicine
DX: I08.1 Rheumatic disorders of both mitral and tricuspid valves (principal)
CPT/HCPCS: 93306

== ENCOUNTER 2019-07-16 05:04 | Emergency (ER) | payer OTHER ==
[2019-07-16 05:14] VITALS: RESP 18; TEMP 98.4
--- NOTE | 2019-07-16 05:49 | XR ---
EXAMINATION TYPE: XR chest 2V DATE OF EXAM: 07/16/2019 COMPARISON: 02/17/2019 HISTORY: Chest pain TECHNIQUE: FINDINGS: Heart and mediastinum are normal. Lungs are clear. Diaphragm is normal. Bony thorax appears normal. IMPRESSION: Normal chest. No change.
--- NOTE | 2019-07-16 06:08 | ED ---
URI HPI - General Chief Complaint: Upper Respiratory Infection Stated Complaint: Cough, earache Time Seen by Provider: 07/16/19 05:22 Source: patient Mode of arrival: ambulatory Limitations: no limitations - History of Present Illness Initial Comments: Cyndee is a previously healthy morbidly obese 38-year-old female presents the emergency department today for evaluation of URI-like symptoms, cough, congestion, left ear pain. Patient reports the cough has been persistent for 3 days, she tried [id number] cough medicine but reported made her nauseated and she was vomiting all day yesterday. Patient reports his cough is keeping her up at night and she feels that she is only gotten 45 hours sleep over the past 2 nights which prompted her to come to the ER for evaluation. Patient reports subjective fevers body aches and overall not feeling well. Patient states she did have a flu shot this year. She denies any known sick contacts. Denies any foreign travel. - Related Data Home Medications Medication Instructions Recorded Confirmed Albuterol Inhaler [Ventolin Hfa 1 - 2 puff INHALATION RT-Q6H PRN 01/06/19 01/06/19 Inhaler] Multivitamins, Thera [Multivitamin 1 tab PO DAILY 01/06/19 01/06/19 (formulary)] Omeprazole 20 mg PO Q48H 01/06/19 01/06/19 Previous Rx's Medication Instructions Recorded Albuterol Inhaler [Ventolin Hfa 1 - 2 puff INHALATION Q6HR PRN #2 01/06/19 Inhaler] puff Dicyclomine [Bentyl] 20 mg PO TID #30 tablet 01/26/19 Ondansetron Odt [Zofran Odt] 4 mg PO Q8HR PRN #20 tab 01/26/19 Benzonatate [Tessalon Perles] 100 mg PO TID #21 cap 07/16/19 Allergies Allergy/AdvReac Type Severity Reaction Status Date / Time dexamethasone [From Decadron] Allergy Anaphylaxis Verified 02/17/19 21:50 NSAIDS (Non-Steroidal Allergy Swelling Verified 02/17/19 21:50 Anti-Inflamma Review of Systems ROS Statement: Those systems with pertinent positive or pertinent negative responses have been documented in the HPI. ROS Other: All systems not noted in ROS Statement are negative. Past Medical History Past Medical History: Asthma History of Any Multi-Drug Resistant Organisms: None Reported Past Surgical History: No Surgical Hx Reported Past Psychological History: Anxiety Smoking Status: Current every day smoker Past Alcohol Use History: None Reported Past Drug Use History: None Reported General Exam - General Exam Comments Initial Comments: Physical Exam GENERAL: Patient is well-developed and well-nourished. Patient is nontoxic and well- hydrated and is in no distress. HENT: Normocephalic, Atraumatic. EYES: PERRL, EOMI PULMONARY: Unlabored respirations. No audible rales rhonchi or wheezing was noted. CARDIOVASCULAR: There is a regular rate and rhythm without any murmurs gallops or rubs. ABDOMEN: Soft and nontender with normal bowel sounds. SKIN: Skin is clear with no lesions or rashes and otherwise unremarkable. : Deferred NEUROLOGIC: Patient is alert and oriented x3. Moving all extremities spontaneously MUSCULOSKELETAL: Normal extremities with adequate strength and full range of motion. No lower extremity swelling or edema. No calf tenderness. PSYCHIATRIC: Normal psychiatric evaluation. Limitations: no limitations Course Vital Signs 07/16/19 05:08 Temperature 98.4 F Pulse Rate 105 H Respiratory 18 Rate Blood Pressure 139/85 O2 Sat by Pulse 99 Oximetry Medical Decision Making - Medical Decision Making The patient was seen and evaluated, history is obtained from the patient, history and physical exam are concerning for flulike illness, influenza swabs were obtained however patient has had symptoms for 3 days now and is not within the window of treatment or Tamiflu if she is positive patient is aware of this. Chest x-ray was obtained and reviewed with no acute findings no evidence of pneumonia or pneumothorax. As also discussed with patient who expresses relief. I discussed with patient possibility of. Negative flu testing versus flulike illness due to another virus. Patient is comfortable with plan for discharge home, supportive care. She will be prescribed Tessalon Perles. Appropriate use of these including making sure to never bite them were discussed. Patient was advised that these can be toxic if ingested by children and keep him safe. All questions pertaining care were answered return parameters were discussed patient was discharged home in stable condition. - Lab Data Lab Results 07/16/19 Range/Units 05:36 Influenza Type A RNA Not Detected (Not Detectd) Influenza Type B (PCR) Not Detected (Not Detectd) Disposition Clinical Impression: Flu-like symptoms Disposition: HOME SELF-CARE Condition: Stable Prescriptions: Benzonatate [Tessalon Perles] 100 mg PO TID #21 cap Is patient prescribed a controlled substance at d/c from ED?: No Referrals: Jerman Soriano MD [Primary Care Provider] - 1-2 days
[2019-07-16 06:39] VITALS: BP 108/69; PULSE 90
== END 2019-07-16 06:30 | disposition home or self-care (01) ==
LOC: EC 05:04
DX: R05 Cough (principal); R09.89 Other specified symptoms and signs involving the circulatory and respiratory systems; H92.02 Otalgia, left ear; R50.9 Fever, unspecified; R52 Pain, unspecified; E66.01 Morbid (severe) obesity due to excess calories; J45.909 Unspecified asthma, uncomplicated; F17.200 Nicotine dependence, unspecified, uncomplicated; Z88.6 Allergy status to analgesic agent; Z88.8 Allergy status to other drugs, medicaments and biological substances; Z79.899 Other long term (current) drug therapy; Z68.38 Body mass index [BMI] 38.0-38.9, adult
CPT/HCPCS: 71046; 87502; 99283

== ENCOUNTER → 2019-10-21 | Outpatient (CLI) | payer OTHER ==
--- NOTE | 2019-10-21 17:06 | MR ---
EXAMINATION TYPE: MR lumbar spine wo con DATE OF EXAM: 10/21/2019 COMPARISON: None HISTORY: Low back pain CONTRAST: 0 mL intravenous Gadavist. TECHNIQUE: Multiplanar, multisequence images of the lumbar spine were acquired. FINDINGS: L5-S1: Central broad-based disc bulge is present with mild epidural space contact. No exiting nerve r oot impingement or displacement is evident. No spinal canal stenosis is present. Mild facet degenerat ammon changes are present. Mild disc desiccation is present. L4-L5: Modic type II endplate changes are present. There is narrowing of the disc height. Minimal dis c bulge has anterior thecal sac contact without spinal canal stenosis. Mild left foraminal narrowing may be present. Right foramen is patent. L3-L4: No significant disc bulge or disc herniation. No spinal canal stenosis. No foraminal stenosi s. . L2-L3: No significant disc bulge or disc herniation. No spinal canal stenosis. No foraminal stenosi s. . L1-L2: No significant disc bulge or disc herniation. No spinal canal stenosis. No foraminal stenosi s. . T12-L1: No significant disc bulge or disc herniation. No spinal canal stenosis. No foraminal stenos is. . IMPRESSION: 1. Degenerative disc change L4-5 with mild left foraminal narrowing. 2. Broadbase central disc bulge L5-S1 without nerve root impingement or thecal sac contact.
== END | disposition home or self-care (01) ==
LOC: RADMRIMAIN 13:53
PROVIDERS: ATTEND Family Medicine
DX: M48.061 Spinal stenosis, lumbar region without neurogenic claudication (principal); M51.27 Other intervertebral disc displacement, lumbosacral region; M51.36 Other intervertebral disc degeneration, lumbar region
CPT/HCPCS: 72148

== ENCOUNTER 2020-01-03 22:39 | Emergency (ER) | payer OTHER ==
[2020-01-03] MEDS ORDERED: SODIUM CHLORIDE 0.9% 1,000 ML IV STA (23:05)
--- NOTE | 2020-01-04 00:10 | ED ---
Abdominal Pain HPI - General Chief Complaint: Abdominal Pain Stated Complaint: Abdominal Pain Time Seen by Provider: 01/03/20 22:54 Source: patient Mode of arrival: ambulatory Limitations: no limitations - History of Present Illness Initial Comments: Kalie is a 39-year-old female with a history of GERD who presents the ER today for evaluation of abdominal pain nausea, vomiting and diarrhea. Patient reports she developed nausea and vomiting last Saturday, she then had diarrhea Saturday through Saturday. She began feeling better on and Saturday she thought she had suffered from food poisoning however she has persistent epigastric abdominal pain. Patient states that she felt a little bit better today so she decided to eat pizza and pain got worse which prompted her come to the ER for evaluation. Patient states she took her normal PPI and some Pepto prior to coming to the emergency department with no relief. She has no history of pink right eye that she doesn't drink alcohol. She has no pain in the right upper quadrant. - Related Data Home Medications Medication Instructions Recorded Confirmed Albuterol Inhaler (Mhu) [Ventolin 1 - 2 puff INHALATION RT-Q6H PRN 01/06/19 01/06/19 Hfa Inhaler] Multivitamins, Thera [Multivitamin 1 tab PO DAILY 01/06/19 01/06/19 (formulary)] Omeprazole 20 mg PO Q48H 01/06/19 01/06/19 Previous Rx's Medication Instructions Recorded Albuterol Inhaler (Mhu) [Ventolin 1 - 2 puff INHALATION Q6HR PRN #2 01/06/19 Hfa Inhaler (Mhu)] puff Dicyclomine [Bentyl] 20 mg PO TID #30 tablet 01/26/19 Ondansetron Odt [Zofran Odt] 4 mg PO Q8HR PRN #20 tab 01/26/19 Benzonatate [Tessalon Perles] 100 mg PO TID #21 cap 07/16/19 Sucralfate [Carafate] 1 gm PO ACHS #1 bottle 01/04/20 Allergies Allergy/AdvReac Type Severity Reaction Status Date / Time dexamethasone [From Decadron] Allergy Anaphylaxis Verified 01/03/20 22:53 NSAIDS (Non-Steroidal Allergy Swelling Verified 01/03/20 22:53 Anti-Inflamma Review of Systems ROS Statement: Those systems with pertinent positive or pertinent negative responses have been documented in the HPI. ROS Other: All systems not noted in ROS Statement are negative. Past Medical History Past Medical History: Asthma History of Any Multi-Drug Resistant Organisms: None Reported Past Surgical History: No Surgical Hx Reported Past Psychological History: Anxiety Smoking Status: Current every day smoker Past Alcohol Use History: None Reported Past Drug Use History: None Reported General Exam - General Exam Comments Initial Comments: Physical Exam GENERAL: Patient is well-developed and well-nourished. Patient is nontoxic and well-hydrated and is in no distress. HENT: Normocephalic, Atraumatic. EYES: PERRL, EOMI PULMONARY: Unlabored respirations. CARDIOVASCULAR: RRR Warm and well perfused extremities ABDOMEN: Soft, tenderness to palpation in the epigastrium Non-peritoneal SKIN: No rashes or bruising : Deferred NEUROLOGIC: Alert and oriented Normal speech Normal gait MUSCULOSKELETAL: Moving all extremities with no apparent injury PSYCHIATRIC: No SI/HI Limitations: no limitations Course Vital Signs 01/03/20 01/04/20 01/04/20 22:51 01:10 02:30 Temperature 98.6 F 97.8 F 98.1 F Pulse Rate 86 71 66 Respiratory 20 16 16 Rate Blood Pressure 130/84 119/67 124/69 O2 Sat by Pulse 98 99 98 Oximetry Medical Decision Making - Medical Decision Making Patient was seen and evaluated, history is obtained from the patient History and physical exam are concerning for likely gastritis which developed after the patient suffered from food poisoning last week Physical exam reveals some epigastric tenderness, abdomen is otherwise nonacute Labs with mild leukocytosis, ALT mildly elevated, normal lipase Computed tomography scan resulted with some fluid around the gallbladder however patient's not having a pain in this location and has no physical exam findings of cholecystitis Patient received a GI cocktail and reported resolution of her discomfort after the GI cocktail, patient does have a history of ulcer firmed on endoscopy she is on omeprazole, at this time I do feel the patient suffering from gastritis I will discharge her home with Carafate and advised to follow-up with her surgeon again to discuss the findings on her computed tomography scan regarding fluid around her gallbladder as well as her recurrent gastritis despite compliance wit h omeprazole. I don't long conversation with the patient regarding dietary modifications, bland diet, small meals avoidance of greasy or or oily foods including pizza. All questions pertaining care were answered return parameters were discussed the patient was discharged home in stable condition - Lab Data Result diagrams: 01/03/20 23:56 01/03/20 23:56 Lab Results 01/03/20 01/03/20 01/03/20 Range/Units 23:56 23:56 23:56 WBC 16.3 H (3.8-10.6) k/uL RBC 5.51 H (3.80-5.40) m/uL Hgb 15.8 (11.4-16.0) gm/dL Hct 49.2 H (34.0-46.0) % MCV 89.2 (80.0-100.0) fL MCH 28.6 (25.0-35.0) pg MCHC 32.1 (31.0-37.0) g/dL RDW 12.7 (11.5-15.5) % Plt Count 287 (150-450) k/uL Neutrophils % 57 % Lymphocytes % 33 % Monocytes % 5 % Eosinophils % 3 % Basophils % 0 % Neutrophils # 9.3 H (1.3-7.7) k/uL Lymphocytes # 5.4 H (1.0-4.8) k/uL Monocytes # 0.8 (0-1.0) k/uL Eosinophils # 0.4 (0-0.7) k/uL Basophils # 0.1 (0-0.2) k/uL Sodium 140 (137-145) mmol/L Potassium 4.4 (3.5-5.1) mmol/L Chloride 105 (98-107) mmol/L Carbon Dioxide 25 (22-30) mmol/L Anion Gap 10 mmol/L BUN 17 (7-17) mg/dL Creatinine 0.78 (0.52-1.04) mg/dL Est GFR (CKD-EPI)AfAm >90 (>60 ml/min/1.73 sqM) Est GFR (CKD-EPI)NonAf >90 (>60 ml/min/1.73 sqM) Glucose 72 L (74-99) mg/dL Calcium 10.7 H (8.4-10.2) mg/dL Total Bilirubin 0.4 (0.2-1.3) mg/dL AST 32 (14-36) U/L ALT 37 H (4-34) U/L Alkaline Phosphatase 80 (38-126) U/L Total Protein 7.4 (6.3-8.2) g/dL Albumin 4.6 (3.5-5.0) g/dL Amylase 56 (30-110) U/L Lipase 118 (23-300) U/L Urine Color Yellow Urine Appearance Cloudy H (Clear) Urine pH 5.5 (5.0-8.0) Ur Specific [place] 1.018 (1.001-1.035) Urine Protein Negative (Negative) Urine Glucose (UA) Negative (Negative) Urine Ketones Negative (Negative) Urine Blood Small H (Negative) Urine Nitrite Negative (Negative) Urine Bilirubin Negative (Negative) Urine Urobilinogen <2.0 (<2.0) mg/dL Ur Leukocyte Esterase Negative (Negative) Urine RBC 5 (0-5) /hpf Urine WBC 2 (0-5) /hpf Ur Squamous Epith Cells 7 H (0-4) /hpf Urine Bacteria Occasional H (None) /hpf Urine Mucus Rare H (None) /hpf Disposition Clinical Impression: Gastritis Disposition: HOME SELF-CARE Condition: Stable Instructions (If sedation given, give patient instructions): Gastritis (DC), Diet for Stomach Ulcers and Gastritis (ED) Prescriptions: Sucralfate [Carafate] 1 gm PO ACHS #1 bottle Is patient prescribed a controlled substance at d/c from ED?: No Referrals: Jerman Soriano MD [Primary Care Provider] - 1-2 days Alcira Gabriel DO [Doctor of Osteopathic Medicine] - 1-2 days
[2020-01-04 00:28] LABS: Basophils # (A) 0.1 k/uL (0-0.2); Basophils % (A) 0 %; Eosinophils # (A) 0.4 k/uL (0-0.7); Eosinophils % (A) 3 %; HCT 49.2 % (34.0-46.0); HGB 15.8 gm/dL (11.4-16.0); Lymphocytes # (A) 5.4 k/uL (1.0-4.8); Lymphocytes % (A) 33 %; MCH 28.6 pg (25.0-35.0); MCHC 32.1 g/dL (31.0-37.0); MCV 89.2 fL (80.0-100.0); Mean Platelet Volume 7.1; Monocytes # (A) 0.8 k/uL (0-1.0); Monocytes % (A) 5 %; Neutrophils # (A) 9.3 k/uL (1.3-7.7); Neutrophils % (A) 57 %; Platelet Count 287 k/uL (150-450); RBC 5.51 m/uL (3.80-5.40); RDW 12.7 % (11.5-15.5); WBC 16.3 k/uL (3.8-10.6)
[2020-01-04 00:42] LABS: Appearance,Urine Cloudy (Clear); Bacteria,Urine Occasional /hpf; Bilirubin,Urine Negative (Negative); Blood,Urine Small (Negative); Color,Urine Yellow; Glucose,Urine (UA) Negative (Negative); Ketones,Urine Negative (Negative); Leukocyte Esterase,Urine Negative (Negative); Mucus,Urine Rare /hpf; Nitrite,Urine Negative (Negative); PH, Urine 5.5 (5.0-8.0); Protein,Urine Negative (Negative); RBC,Urine 5 /hpf (0-5); Specific Gravity,Urine 1.018 (1.001-1.035); Squamous Epithelial Cell,Urine 7 /hpf (0-4); Urobilinogen,Urine <2.0 mg/dL (<2.0); WBC,Urine 2 /hpf (0-5)
[2020-01-04 00:55] LABS: ALT 37 U/L (4-34); AST 32 U/L (14-36); African American GFR (CKD) >90 (>60 ml/min/1.73 sqM); Albumin 4.6 g/dL (3.5-5.0); Alkaline Phosphatase 80 U/L (38-126); Amylase 56 U/L (30-110); Anion Gap 10 mmol/L; Blood Urea Nitrogen 17 mg/dL (7-17); Calcium 10.7 mg/dL (8.4-10.2); Carbon Dioxide 25 mmol/L (22-30); Chloride 105 mmol/L (98-107); Glucose 72 mg/dL (74-99); Non-African American GFR(CKD) >90 (>60 ml/min/1.73 sqM); Potassium 4.4 mmol/L (3.5-5.1); Sodium 140 mmol/L (137-145); Total Bilirubin 0.4 mg/dL (0.2-1.3); Total Protein 7.4 g/dL (6.3-8.2)
[2020-01-04 01:48] VITALS: RESP 16
[2020-01-04] MEDS ORDERED: [UNRECOGNIZED DRUG - MIXTURE] PO ONE ×2 (02:00)
[2020-01-04] MEDS: MAG HYDROX/AL HYDROX/SIMETH 30 ML, HYOSCYAMINE ELIXIR 10 ML, LIDOCAINE VISCOUS 2% 10 ML PO STA ×6 (02:09→02:31)
--- NOTE | 2020-01-04 02:28 | CT ---
EXAMINATION TYPE: CT abdomen pelvis w con DATE OF EXAM: 01/04/2020 COMPARISON: 01/26/2019 HISTORY: Abdominal pain CT DLP: mGycm Automated exposure control for dose reduction was used. CONTRAST: Performed , patient injected with mL of . The contrast was Isovue 100 mL. FINDINGS: Lung bases are clear. There is no pleural effusion. Heart size is normal. There is no pericardial eff usion. There is some fatty infiltration of the liver. Bile ducts are not dilated. Spleen appears normal. Sto mach appears normal. There is no pancreatic mass. There is small amount of pericholecystic fluid. There is no adrenal mass. Kidneys show satisfactory contrast opacification. There is no hydronephrosi s. Ureters are not dilated. Delayed images show normal renal excretion. Bladder distends smoothly. Th ere is no inguinal hernia. There is no free fluid in the pelvis. There is no evidence of pelvic mass. Appendix is posterior and appears normal. Uterus is anteverted. There is no mesenteric edema. There is no ascites or free air. There is no bowel obstruction. Lumbar vertebra have fairly normal alignment. There is mild narrowing of L4-5 and L5-S1 disc spaces. There i s no compression fracture. The bony pelvis is intact. Hip joints appear normal. IMPRESSION: There is mild fatty infiltration of the liver unchanged. There is small amount of pericholecystic flu id that could relate to cholecystitis and is a change compared to old exam.
[2020-01-04 02:47] VITALS: BP 124/69; PULSE 66; TEMP 98.1
== END 2020-01-04 03:27 | disposition home or self-care (01) ==
LOC: EC 22:39
DX: K29.70 Gastritis, unspecified, without bleeding (principal); D72.829 Elevated white blood cell count, unspecified; J45.909 Unspecified asthma, uncomplicated; F17.200 Nicotine dependence, unspecified, uncomplicated; Z79.899 Other long term (current) drug therapy; Z88.6 Allergy status to analgesic agent; Z88.8 Allergy status to other drugs, medicaments and biological substances
CPT/HCPCS: 36415; 74177; 80053; 81001; 82150; 83690; 85025; 96360; 99284

== ENCOUNTER 2020-02-13 11:13 | Emergency (ER) | payer OTHER ==
[2020-02-13 11:46] VITALS: TEMP 98.9
[2020-02-13] MEDS ORDERED: IPRATROPIUM-ALBUTEROL 3 ML NEB INHALATION STA (11:56)
[2020-02-13] MEDS ORDERED: methylPREDNISolone SOD SUCCI 125 MG/2 ML VIAL IV STA (11:56)
--- NOTE | 2020-02-13 12:02 | ED ---
URI HPI - General Chief Complaint: Upper Respiratory Infection Stated Complaint: cough, SOB Time Seen by Provider: 02/13/20 11:51 Source: patient, RN notes reviewed, old records reviewed Mode of arrival: ambulatory Limitations: no limitations - History of Present Illness Initial Comments: 39-year-old young since returned today with 3 days of worsening cough shortness of breath. She is a former's she is a smoker was not able to for the past 2 days. Patient has had no productive cough. Denies any fever. - Related Data Home Medications Medication Instructions Recorded Confirmed Multivitamins, Thera [Multivitamin 1 tab PO DAILY 01/06/19 02/13/20 (formulary)] Omeprazole 20 mg PO BID 01/06/19 02/13/20 Albuterol Inhaler [Ventolin Hfa 2 puff INHALATION RT-QID PRN 02/13/20 02/13/20 Inhaler] Ergocalciferol [Vitamin D2] 50,000 unit PO MO 02/13/20 02/13/20 Gabapentin 300 mg PO TID 02/13/20 02/13/20 tiZANidine [Zanaflex] 4 mg PO HS 02/13/20 02/13/20 Previous Rx's Medication Instructions Recorded Ipratropium-Albuterol Nebulize 3 ml INHALATION TID #30 neb 02/13/20 [Duoneb 0.5 mg-3 mg/3 ml Soln] Levofloxacin [Levaquin] 750 mg PO DAILY 1 Days #5 tab 02/13/20 Promethazine/Dextromethorphan 5 ml PO TID #120 ml 02/13/20 [Phenergan DM Syrup] predniSONE [Deltasone] 20 mg PO DIRECTED #12 tab 02/13/20 Allergies Allergy/AdvReac Type Severity Reaction Status Date / Time dexamethasone [From Decadron] Allergy Anaphylaxis Verified 02/13/20 13:06 NSAIDS (Non-Steroidal Allergy Swelling Verified 02/13/20 13:06 Anti-Inflamma pregabalin [From Lyrica] AdvReac Nausea & Verified 02/13/20 13:07 Vomiting & Diarrhea Review of Systems ROS Statement: Those systems with pertinent positive or pertinent negative responses have been documented in the HPI. ROS Other: All systems not noted in ROS Statement are negative. Past Medical History Past Medical History: Asthma History of Any Multi-Drug Resistant Organisms: None Reported Past Surgical History: No Surgical Hx Reported Past Psychological History: Anxiety Smoking Status: Current every day smoker Past Alcohol Use History: None Reported Past Drug Use History: None Reported General Exam - General Exam Comments Initial Comments: 39-year-old female. Alert and oriented 3. Limitations: no limitations General appearance: alert, in no apparent distress Head exam: Present: atraumatic, normocephalic, normal inspection Eye exam: Present: normal appearance, PERRL, EOMI. Absent: scleral icterus, conjunctival injection, periorbital swelling ENT exam: Present: normal exam, mucous membranes moist Neck exam: Present: normal inspection. Absent: tenderness, meningismus, ly mphadenopathy Respiratory exam: Present: wheezes. Absent: normal lung sounds bilaterally, respiratory distress, rales, rhonchi, stridor Cardiovascular Exam: Present: regular rate, normal rhythm, normal heart sounds. Absent: systolic murmur, diastolic murmur, rubs, gallop, clicks GI/Abdominal exam: Present: soft, normal bowel sounds. Absent: distended, tenderness, guarding, rebound, rigid Extremities exam: Present: normal inspection Back exam: Present: normal inspection Neurological exam: Present: alert, oriented X3, CN II-XII intact Psychiatric exam: Present: normal affect, normal mood Skin exam: Present: warm, dry, intact, normal color. Absent: rash Course Vital Signs 02/13/20 02/13/20 02/13/20 11:42 12:23 12:41 Temperature 98.9 F Pulse Rate 108 H 87 91 Respiratory 18 Rate Blood Pressure 143/83 O2 Sat by Pulse 97 Oximetry 02/13/20 12:47 Temperature Pulse Rate 99 Respiratory 20 Rate Blood Pressure 112/67 O2 Sat by Pulse 97 Oximetry Medical Decision Making - Medical Decision Making 31-year-old female since restarted today with 3 days of cough congestion and wheezing. She is a smoker. She reports she stopped smoking for the past few days. At this time Patient does have some wheezing was given 2 double DuoNeb and IV cimetidine was important reviewed improvement. Complains of chest pain with coughing and wheezing. Patient's chest x-ray was reviewed and negative for acute process. No evidence of pneumonia. Labs reviewed mildly leukocytosis. Discussed Patient has significant bronchitis. We'll start the Patient on steroids, antibiotics, cough syrup and DuoNeb treatments. Advised close follow- up with PCP in 2 days. Patient was swabbed for Covid testing due to symptoms. Discussed that these results will not re-turn for 2 one to 2 days. - Lab Data Result diagrams: 02/13/20 12:15 02/13/20 12:15 Lab Results 02/13/20 02/13/20 Range/Units 12:15 12:15 WBC 15.0 H (3.8-10.6) k/uL RBC 5.45 H (3.80-5.40) m/uL Hgb 15.4 (11.4-16.0) gm/dL Hct 48.3 H (34.0-46.0) % MCV 88.7 (80.0-100.0) fL MCH 28.3 (25.0-35.0) pg MCHC 31.9 (31.0-37.0) g/dL RDW 13.0 (11.5-15.5) % Plt Count 251 (150-450) k/uL Neutrophils % 71 % Lymphocytes % 18 % Monocytes % 5 % Eosinophils % 5 % Basophils % 0 % Neutrophils # 10.6 H (1.3-7.7) k/uL Lymphocytes # 2.7 (1.0-4.8) k/uL Monocytes # 0.8 (0-1.0) k/uL Eosinophils # 0.7 (0-0.7) k/uL Basophils # 0.1 (0-0.2) k/uL Sodium 141 (137-145) mmol/L Potassium 4.7 (3.5-5.1) mmol/L Chloride 106 (98-107) mmol/L Carbon Dioxide 28 (22-30) mmol/L Anion Gap 7 mmol/L BUN 11 (7-17) mg/dL Creatinine 0.71 (0.52-1.04) mg/dL Est GFR (CKD-EPI)AfAm >90 (>60 ml/min/1.73 sqM) Est GFR (CKD-EPI)NonAf >90 (>60 ml/min/1.73 sqM) Glucose 130 H (74-99) mg/dL Calcium 9.5 (8.4-10.2) mg/dL Magnesium 1.9 (1.6-2.3) mg/dL Total Bilirubin 0.5 (0.2-1.3) mg/dL AST 24 (14-36) U/L ALT 24 (4-34) U/L Alkaline Phosphatase 70 (38-126) U/L Total Protein 6.8 (6.3-8.2) g/dL Albumin 3.9 (3.5-5.0) g/dL - Radiology Data Radiology results: report reviewed No suspicious acute coronary process. No significant change from prior. Disposition Clinical Impression: Bronchitis Disposition: HOME SELF-CARE Condition: Good Instructions (If sedation given, give patient instructions): Acute Bronchitis (ED) Additional Instructions: rest, remain hydrated. Close follow-up with primary care physician. Return to emergency department if any alarming signs or symptoms occur. Prescriptions: predniSONE [Deltasone] 20 mg PO DIRECTED #12 tab Ipratropium-Albuterol Nebulize [Duoneb 0.5 mg-3 mg/3 ml Soln] 3 ml INHALATION TID #30 neb Levofloxacin [Levaquin] 750 mg PO DAILY 1 Days #5 tab Promethazine/Dextromethorphan [Phenergan DM Syrup] 5 ml PO TID #120 ml Is patient prescribed a controlled substance at d/c from ED?: No Referrals: Jerman Soriano MD [Primary Care Provider] - 1-2 days Time of Disposition: 13:35
[2020-02-13 12:26] LABS: Basophils # (A) 0.1 k/uL (0-0.2); Basophils % (A) 0 %; Eosinophils # (A) 0.7 k/uL (0-0.7); Eosinophils % (A) 5 %; HCT 48.3 % (34.0-46.0); HGB 15.4 gm/dL (11.4-16.0); Lymphocytes # (A) 2.7 k/uL (1.0-4.8); Lymphocytes % (A) 18 %; MCH 28.3 pg (25.0-35.0); MCHC 31.9 g/dL (31.0-37.0); MCV 88.7 fL (80.0-100.0); Mean Platelet Volume 6.9; Monocytes # (A) 0.8 k/uL (0-1.0); Monocytes % (A) 5 %; Neutrophils # (A) 10.6 k/uL (1.3-7.7); Neutrophils % (A) 71 %; Platelet Count 251 k/uL (150-450); RBC 5.45 m/uL (3.80-5.40)
[2020-02-13 12:35] LABS: ALT 24 U/L (4-34); AST 24 U/L (14-36); African American GFR (CKD) >90 (>60 ml/min/1.73 sqM); Albumin 3.9 g/dL (3.5-5.0); Alkaline Phosphatase 70 U/L (38-126); Anion Gap 7 mmol/L; Blood Urea Nitrogen 11 mg/dL (7-17); Calcium 9.5 mg/dL (8.4-10.2); Carbon Dioxide 28 mmol/L (22-30); Chloride 106 mmol/L (98-107); Glucose 130 mg/dL (74-99); Magnesium 1.9 mg/dL (1.6-2.3); Non-African American GFR(CKD) >90 (>60 ml/min/1.73 sqM); Potassium 4.7 mmol/L (3.5-5.1); Sodium 141 mmol/L (137-145); Total Bilirubin 0.5 mg/dL (0.2-1.3); Total Protein 6.8 g/dL (6.3-8.2)
--- NOTE | 2020-02-13 12:53 | XR ---
EXAMINATION TYPE: XR chest 2V DATE OF EXAM: 02/13/2020 COMPARISON: Chest x-ray July 16, 2019. HISTORY: Cough and congestion. TECHNIQUE: Frontal and lateral views of the chest are obtained. FINDINGS: Somewhat low lung volumes redemonstrated. There is no focal air space opacity, pleural effu idania, or pneumothorax seen. The cardiac silhouette size is within normal limits. The osseous struc tures are intact. IMPRESSION: No suspicious acute pulmonary process. No significant change from prior.
[2020-02-13] MEDS ORDERED: cefTRIAXone IN SWFI 1,000 MG/10 ML SYRINGE IVP STA (13:35)
[2020-02-13] MEDS ORDERED: ACET/COD 300 MG/30 MG STARTER PACK 6 TAB BTL PO STA (13:41)
[2020-02-13 13:46] VITALS: BP 96/47; PULSE 97; RESP 16
== END 2020-02-13 13:50 | disposition home or self-care (01) ==
LOC: EC 11:13
DX: J45.909 Unspecified asthma, uncomplicated (principal); D72.829 Elevated white blood cell count, unspecified; F41.9 Anxiety disorder, unspecified; F17.200 Nicotine dependence, unspecified, uncomplicated; Z79.899 Other long term (current) drug therapy; Z88.8 Allergy status to other drugs, medicaments and biological substances; Z88.6 Allergy status to analgesic agent; Z20.828 Contact with and (suspected) exposure to other viral communicable diseases
CPT/HCPCS: 36415; 94640; 80053; 83735; 85025; 71046; 99284; 96374; 96375; U0003; J2930; J0696

== ENCOUNTER → 2020-04-05 | Outpatient (CLI) | payer OTHER ==
[2020-04-05 15:30] LABS: Basophils % (A) 0 %; Eosinophils # (A) 0.3 k/uL (0-0.7); Eosinophils % (A) 3 %; HCT 46.7 % (34.0-46.0); HGB 14.9 gm/dL (11.4-16.0); Lymphocytes # (A) 3.8 k/uL (1.0-4.8); Lymphocytes % (A) 35 %; MCH 28.6 pg (25.0-35.0); MCHC 31.9 g/dL (31.0-37.0); MCV 89.7 fL (80.0-100.0); Mean Platelet Volume 6.8; Monocytes # (A) 0.5 k/uL (0-1.0); Monocytes % (A) 4 %; Neutrophils % (A) 56 %; Platelet Count 272 k/uL (150-450); RBC 5.21 m/uL (3.80-5.40); WBC 10.7 k/uL (3.8-10.6)
[2020-04-06 02:25] LABS: Albumin 4.2 g/dL (3.80-4.90); Albumin/Globulin Ratio 1.91 (1.60-3.17); Anion Gap 5.9 mmol/L (4.00-12.00); BUN/Creat Ratio 11.11 Ratio (12.00-20.00); Calcium 9.5 mg/dL (8.7-10.3); Carbon Dioxide 27.1 mmol/L (21.6-31.8); Globulin 2.2 g/dL (1.6-3.3); Non-African American GFR(CKD) 81.1 (60.0-200.0); Potassium 4.2 mmol/L (3.5-5.5); Total Bilirubin 0.4 mg/dL (0.2-1.2); Total Protein 6.4 g/dL (6.2-8.2)
[2020-04-06 02:33] LABS: Prolactin 5.5 ng/mL (2.8-29.2); T4, Free (Free Thyroxine) 1.3 ng/dL (0.80-1.80)
== END | disposition home or self-care (01) ==
LOC: LABWHC1 14:43
PROVIDERS: ATTEND Psychiatry & Neurology Pain Medicine
DX: L68.0 Hirsutism (principal); R63.5 Abnormal weight gain; Z51.81 Encounter for therapeutic drug level monitoring
CPT/HCPCS: 36415; 80053; 82024; 84146; 84403; 84439; 84443; 84481; 85025

== ENCOUNTER 2020-05-14 23:01 | Emergency (ER) | payer OTHER ==
[2020-05-14 23:08] VITALS: RESP 18
--- NOTE | 2020-05-14 23:15 | ED ---
Extremity Problem HPI - General Chief complaint: Extremity Problem,Nontraumatic Stated complaint: RT leg pain Time Seen by Provider: 05/14/20 23:14 Source: patient Mode of arrival: ambulatory Limitations: no limitations - History of Present Illness Initial comments: 39-year-old female with history of chronic back pain, L5 disc herniation presenting to emergency Department with a chief complaint of back and leg pain. Patient states she sees for epidural injections. States 5 days ago she had one performed which typically improve her symptoms for about one week. Patient reports 2 days after procedure, she has developed pain in the lumbar region that is radiating down to the right lower extremity. Patient states this feels like a burning sensation going down almost to her foot. States the pain is worse whenever she is touching the leg. States putting on pants make the pain a lot worse. States ambulation typically makes her pain worse. States she has no pain whenever she standing. She denies any weakness in the leg. Denies any saddle anesthesia, urinary retention with overflow incontinence or bowel incontinence. She denies any abdominal pain, nausea, vomiting. Denies any associated headaches after the epidural. - Related Data Home Medications Medication Instructions Recorded Confirmed Multivitamins, Thera [Multivitamin 1 tab PO DAILY 01/06/19 02/13/20 (formulary)] Omeprazole 20 mg PO BID 01/06/19 02/13/20 Albuterol Inhaler [Ventolin Hfa 2 puff INHALATION RT-QID PRN 02/13/20 02/13/20 Inhaler] Ergocalciferol [Vitamin D2] 50,000 unit PO MO 02/13/20 02/13/20 Gabapentin 300 mg PO TID 02/13/20 02/13/20 tiZANidine [Zanaflex] 4 mg PO HS 02/13/20 02/13/20 Previous Rx's Medication Instructions Recorded Ipratropium-Albuterol Nebulize 3 ml INHALATION TID #30 neb 02/13/20 [Duoneb 0.5 mg-3 mg/3 ml Soln] Levofloxacin [Levaquin] 750 mg PO DAILY 1 Days #5 tab 02/13/20 Promethazine/Dextromethorphan 5 ml PO TID #120 ml 02/13/20 [Phenergan DM Syrup] predniSONE [Deltasone] 20 mg PO DIRECTED #12 tab 02/13/20 Hydrocodone/Acetaminophen [[place] 1 tab PO Q6HR PRN #12 tab 05/15/20 5-325] Allergies Allergy/AdvReac Type Severity Reaction Status Date / Time dexamethasone [From Decadron] Allergy Anaphylaxis Verified 02/13/20 13:06 NSAIDS (Non-Steroidal Allergy Swelling Verified 05/14/20 23:08 Anti-Inflamma pregabalin [From Lyrica] AdvReac Nausea & Verified 02/13/20 13:07 Vomiting & Diarrhea Review of Systems ROS Statement: Those systems with pertinent positive or pertinent negative responses have been documented in the HPI. ROS Other: All systems not noted in ROS Statement are negative. Past Medical History Past Medical History: Asthma Additional Past Medical History / Comment(s): chronic back pain, bulging disc in L5. History of Any Multi-Drug Resistant Organisms: None Reported Past Surgical History: No Surgical Hx Reported Past Psychological History: Anxiety Smoking Status: Current every day smoker Past Alcohol Use History: None Reported Past Drug Use History: None Reported General Exam Limitations: no limitations General appearance: alert, in no apparent distress Head exam: Present: atraumatic, normocephalic, normal inspection Eye exam: Present: normal appearance, PERRL, EOMI Pupils: Present: normal accommodation ENT exam: Present: normal exam, normal oropharynx, mucous membranes moist, TM's normal bilaterally, normal external ear exam Neck exam: Present: normal inspection, full ROM. Absent: tenderness Respiratory exam: Present: normal lung sounds bilaterally. Absent: respiratory distress, wheezes, rales, rhonchi, stridor Cardiovascular Exam: Present: regular rate, normal rhythm, normal heart sounds. Absent: systolic murmur, diastolic murmur GI/Abdominal exam: Present: soft. Absent: distended, tenderness, guarding, rebound Extremities exam: Present: normal inspection, full ROM, tenderness, normal capillary refill. Absent: pedal edema, joint swelling Back exam: Present: normal inspection, full ROM, vertebral tenderness (Vertebral and paraspinal tenderness in the right lumbosacral region.), other (Positive leg raise test right lower extremity.). Absent: tenderness, CVA tenderness (R), CVA tenderness (L), muscle spasm, paraspinal tenderness Neurological exam: Present: alert, oriented X3, normal gait Psychiatric exam: Present: normal affect, normal mood Skin exam: Present: warm, dry, intact, normal color Course Vital Signs 05/14/20 05/15/20 23:02 01:30 Temperature 98.3 F 98 F Pulse Rate 88 80 Respiratory 18 18 Rate Blood Pressure 128/82 125/79 O2 Sat by Pulse 100 98 Oximetry Medical Decision Making - Medical Decision Making 31-year-old female with history of chronic back pain, disc herniation L5 presenting to emergency Department with a chief complaint of back and leg pain. On physical examination, she has tenderness of the right leg whenever I make contact with her skin. She also has locally sinus to the right lumbosacral region. The epidural site appears well. No signs of infection. There low concern for cauda equina at this time. Patient was given one tablet of [place]. On reevaluation, patient reports improvement in her symptoms. States the burning sensation has resolved. She continues to have some sharp shooting pain that is exacerbated with ambulation. Patient was discharged with 3 days of [place]. I discussed the potential of abuse of narcotic medications. Patient did sign the narcotics form. I advised her to follow-up with her neurologist and obtain an urgent MRI. Return parameters discussed the patient is understanding and agreeable. Case discussed with physician. Disposition Clinical Impression: Right leg pain, Back pain Disposition: HOME SELF-CARE Condition: Stable Instructions (If sedation given, give patient instructions): Back Pain (ED) Additional Instructions: Take prescribed medication as directed. See your emergency specialist. Return to emergency department if symptoms worsen. Prescriptions: Hydrocodone/Acetaminophen [[place] 5-325] 1 tab PO Q6HR PRN #12 tab PRN Reason: Pain Is patient prescribed a controlled substance at d/c from ED?: No Referrals: Jerman Soriano MD [Primary Care Provider] - 1-2 days Time of Disposition: 01:05
[2020-05-14] MEDS ORDERED: HYDROcodone/APAP 5-325MG 1 EACH TAB PO STA (23:36)
[2020-05-15] MEDS ORDERED: HYDROcodone/APAP 5-325MG 1 EACH TAB PO STA (01:14)
[2020-05-15 01:31] VITALS: BP 125/79; PULSE 80; TEMP 98
== END 2020-05-15 01:31 | disposition home or self-care (01) ==
LOC: EC 23:01
DX: M51.26 Other intervertebral disc displacement, lumbar region (principal); J45.909 Unspecified asthma, uncomplicated; F17.200 Nicotine dependence, unspecified, uncomplicated; Z88.8 Allergy status to other drugs, medicaments and biological substances
CPT/HCPCS: 99283

== ENCOUNTER 2020-09-16 16:53 | Emergency (ER) | payer OTHER ==
[2020-09-16 16:58] VITALS: TEMP 97.9
[2020-09-16] MEDS ORDERED: MORPHINE SULFATE 4 MG/ML SYRINGE IVP STA (18:20)
[2020-09-16] MEDS ORDERED: SODIUM CHLORIDE 0.9% 1,000 ML IV STA (18:20)
[2020-09-16 18:36] LABS: Basophils # (A) 0.1 k/uL (0-0.2); Basophils % (A) 1 %; Eosinophils # (A) 0.5 k/uL (0-0.7); Eosinophils % (A) 4 %; HCT 49.7 % (34.0-46.0); HGB 16.1 gm/dL (11.4-16.0); Lymphocytes # (A) 4.2 k/uL (1.0-4.8); Lymphocytes % (A) 32 %; MCH 28.6 pg (25.0-35.0); MCHC 32.5 g/dL (31.0-37.0); MCV 87.9 fL (80.0-100.0); Mean Platelet Volume 7.1; Monocytes # (A) 0.6 k/uL (0-1.0); Monocytes % (A) 4 %; Neutrophils # (A) 7.8 k/uL (1.3-7.7); Neutrophils % (A) 59 %; Platelet Count 291 k/uL (150-450); RBC 5.65 m/uL (3.80-5.40); RDW 12.8 % (11.5-15.5); WBC 13.3 k/uL (3.8-10.6)
[2020-09-16 18:44] LABS: ALT 30 U/L (4-34); AST 33 U/L (14-36); African American GFR (CKD) >90 (>60 ml/min/1.73 sqM); Albumin 4.6 g/dL (3.5-5.0); Alkaline Phosphatase 84 U/L (38-126); Anion Gap 9 mmol/L; Blood Urea Nitrogen 13 mg/dL (7-17); Calcium 10.3 mg/dL (8.4-10.2); Carbon Dioxide 27 mmol/L (22-30); Chloride 105 mmol/L (98-107); Glucose 105 mg/dL (74-99); Non-African American GFR(CKD) >90 (>60 ml/min/1.73 sqM); Potassium 4.5 mmol/L (3.5-5.1); Sodium 141 mmol/L (137-145); Total Bilirubin 0.5 mg/dL (0.2-1.3); Total Protein 7.4 g/dL (6.3-8.2)
[2020-09-16] MEDS ORDERED: ACET/COD 300 MG/30 MG STARTER PACK 6 TAB BTL PO STA (19:46)
--- NOTE | 2020-09-16 19:47 | ED ---
General Adult HPI - General Chief complaint: Weakness Stated complaint: Weakness/numbness/pain in legs/arms/hands Time Seen by Provider: 09/16/20 17:40 Source: patient, RN notes reviewed Mode of arrival: ambulatory Limitations: no limitations - History of Present Illness Initial comments: 40-year-old female with a past medical history of diabetes mellitus, chronic back pain, bulging disc, nerve damage presents to the emergency room for a chief complaint of arm and leg pain. Patient states that she has had leg pain for months to years. States this is from her low back. States she sees a neurologist for it. States it is a dull aching pain. Patient reports that over the past couple weeks has started in her hands and arms as well. Patient repo rts she thought it was her metformin so discontinued this. She did see her primary care about this. Is supposed to check back in. Patient has no other complaints at this time including shortness of breath, chest pain, abdominal pain, nausea or vomiting, headache, or visual changes. - Related Data Home Medications Medication Instructions Recorded Confirmed Omeprazole 20 mg PO DAILY PRN 01/06/19 09/16/20 Albuterol Inhaler [Ventolin Hfa 2 puff INHALATION RT-QID PRN 02/13/20 09/16/20 Inhaler] Ergocalciferol [Vitamin D2] 50,000 unit PO MO 02/13/20 09/16/20 Gabapentin 300 mg PO HS 02/13/20 09/16/20 Menthol [Biofreeze] 1 applic TOPICAL BID PRN 09/16/20 09/16/20 Allergies Allergy/AdvReac Type Severity Reaction Status Date / Time dexamethasone [From Decadron] Allergy Anaphylaxis Verified 09/16/20 18:08 NSAIDS (Non-Steroidal Allergy Swelling Verified 09/16/20 18:08 Anti-Inflamma pregabalin [From Lyrica] AdvReac Nausea & Verified 09/16/20 18:08 Vomiting & Diarrhea Review of Systems ROS Statement: Those systems with pertinent positive or pertinent negative responses have been documented in the HPI. ROS Other: All systems not noted in ROS Statement are negative. Past Medical History Past Medical History: Asthma, Diabetes Mellitus Additional Past Medical History / Comment(s): chronic back pain, bulging disc in L5. nerve damage, PCOS, History of Any Multi-Drug Resistant Organisms: None Reported Past Surgical History: No Surgical Hx Reported Past Psychological History: Anxiety Smoking Status: Current every day smoker Past Alcohol Use History: None Reported Past Drug Use History: None Reported General Exam - General Exam Comments Initial Comments: Strength 5 out of 5 in upper and lower extremities. Sensation intact in all ex tremities. Radial and DP pulses 2+. Full range of motion of all extremities. Sensation intact in all extremities. No obvious abnormality on physical exam. Limitations: no limitations General appearance: alert, in no apparent distress Head exam: Present: atraumatic, normocephalic, normal inspection Eye exam: Present: normal appearance, PERRL, EOMI. Absent: scleral icterus, conjunctival injection, periorbital swelling ENT exam: Present: normal exam Neck exam: Present: normal inspection. Absent: tenderness, meningismus, lymphadenopathy Respiratory exam: Present: normal lung sounds bilaterally. Absent: respiratory distress, wheezes, rales, rhonchi, stridor Cardiovascular Exam: Present: regular rate, normal rhythm, normal heart sounds. Absent: systolic murmur, diastolic murmur, rubs, gallop, clicks GI/Abdominal exam: Present: soft, normal bowel sounds. Absent: distended, tenderness, guarding, rebound, rigid Neurological exam: Present: alert, oriented X3, normal gait Course Vital Signs 09/16/20 16:54 Temperature 97.9 F Pulse Rate 95 Respiratory 18 Rate Blood Pressure 144/102 O2 Sat by Pulse 98 Oximetry Medical Decision Making - Medical Decision Making Vitals are stable. CBC does show hemoglobin of 16, could be related to dehydration versus smoking. CMP unremarkable. TSH normal. Patient does have leukocytosis however this does appear chronic for patient. Patient was given pain medication and did have significant improvement in pain. States pain had resolved. At this point symptoms could be rheumatologic in nature. I recommend patient follows up with rheumatology, referral given. In the meantime we will give her Tylenol 3 for breakthrough pain. She will return here for any worsening symptoms. - Lab Data Result diagrams: 09/16/20 18:22 09/16/20 18:22 Lab Results 09/16/20 09/16/20 Range/Units 18:22 18:22 WBC 13.3 H (3.8-10.6) k/uL RBC 5.65 H (3.80-5.40) m/uL Hgb 16.1 H (11.4-16.0) gm/dL Hct 49.7 H (34.0-46.0) % MCV 87.9 (80.0-100.0) fL MCH 28.6 (25.0-35.0) pg MCHC 32.5 (31.0-37.0) g/dL RDW 12.8 (11.5-15.5) % Plt Count 291 (150-450) k/uL MPV 7.1 Neutrophils % 59 % Lymphocytes % 32 % Monocytes % 4 % Eosinophils % 4 % Basophils % 1 % Neutrophils # 7.8 H (1.3-7.7) k/uL Lymphocytes # 4.2 (1.0-4.8) k/uL Monocytes # 0.6 (0-1.0) k/uL Eosinophils # 0.5 (0-0.7) k/uL Basophils # 0.1 (0-0.2) k/uL Sodium 141 (137-145) mmol/L Potassium 4.5 (3.5-5.1) mmol/L Chloride 105 (98-107) mmol/L Carbon Dioxide 27 (22-30) mmol/L Anion Gap 9 mmol/L BUN 13 (7-17) mg/dL Creatinine 0.75 (0.52-1.04) mg/dL Est GFR (CKD-EPI)AfAm >90 (>60 ml/min/1.73 sqM) Est GFR (CKD-EPI)NonAf >90 (>60 ml/min/1.73 sqM) Glucose 105 H (74-99) mg/dL Calcium 10.3 H (8.4-10.2) mg/dL Total Bilirubin 0.5 (0.2-1.3) mg/dL AST 33 (14-36) U/L ALT 30 (4-34) U/L Alkaline Phosphatase 84 (38-126) U/L Total Protein 7.4 (6.3-8.2) g/dL Albumin 4.6 (3.5-5.0) g/dL TSH 3.160 (0.465-4.680) mIU/L Disposition Clinical Impression: Myalgia, Extremity pain Disposition: HOME SELF-CARE Condition: Good Instructions (If sedation given, give patient instructions): Musculoskeletal Pain (ED) Additional Instructions: Please follow-up with your doctor and rheumatology in one to 2 days. Take Tylenol 3 before bed to help with pain at night. Do not drive or operate machinery while taking this. Return to the emergency room for any worsening symptoms. Is patient prescribed a controlled substance at d/c from ED?: No Referrals: Jerman Soriano MD [Primary Care Provider] - 1-2 days Kourtney Nelson MD [STAFF PHYSICIAN] - 1-2 days Time of Disposition: 19:46
[2020-09-16 20:08] VITALS: BP 110/85; PULSE 75; RESP 16
== END 2020-09-16 20:07 | disposition home or self-care (01) ==
LOC: EC 16:53
DX: M79.605 Pain in left leg (principal); M79.604 Pain in right leg; M79.10 Myalgia, unspecified site; J45.909 Unspecified asthma, uncomplicated; E11.9 Type 2 diabetes mellitus without complications; F17.200 Nicotine dependence, unspecified, uncomplicated; D72.829 Elevated white blood cell count, unspecified
CPT/HCPCS: 36415; 80053; 84443; 85025; 99283; 96360; 96361; J2270

== ENCOUNTER → 2020-12-26 | Outpatient (CLI) | payer OTHER ==
--- NOTE | 2020-12-27 08:40 | XR ---
EXAM TYPE: LUMBAR SPINE X RAY SERIES COMPARISON: NONE HISTORY: Pain TECHNIQUE: 4 views are submitted. FINDINGS: Alignment is anatomic. The pedicles are intact. The transverse processes are intact. There is no s pondylolisthesis. Severe degenerative disc disease L4-L5 with moderate changes at L5-S1. There is fac et arthropathy at these levels. IMPRESSION: 1. Severe degenerative disc disease lower lumbar spine, correlate with MRI as clinically warranted.
--- NOTE | 2020-12-27 08:41 | XR ---
EXAMINATION TYPE: XR sacroiliac joint comp BILAT DATE OF EXAM: 12/26/2020 COMPARISON: NONE HISTORY: Pain TECHNIQUE: 3 views submitted FINDINGS: Severe degenerative change lower lumbar spine. Calcifications in pelvis are nonspecific but likely vascular. SI joints are symmetric with no sclerosis or erosive changes. Incidental note made of hypertrophic changes involving the acetabulum. IMPRESSION: 1. No diagnostic evidence of sacroiliitis. 2. Hypertrophic changes involving the acetabulum can be associated with femoral acetabular impingemen t. Correlate clinically.
== END | disposition home or self-care (01) ==
LOC: RADXRMAIN 15:45
PROVIDERS: ATTEND Internal Medicine
DX: M51.36 Other intervertebral disc degeneration, lumbar region (principal)
CPT/HCPCS: 72100; 72202

== ENCOUNTER 2021-01-05 05:27 | Emergency (ER) | payer OTHER ==
[2021-01-05 05:37] VITALS: RESP 18; TEMP 97.9
[2021-01-05] MEDS ORDERED: diphenhydrAMINE 50 MG CAP PO STA (05:54)
[2021-01-05] MEDS ORDERED: HYDROmorphone 1 MG/ML 1 ML SYRINGE IM STA (05:54)
[2021-01-05] MEDS ORDERED: diazePAM 5 MG TAB PO STA (05:54)
--- NOTE | 2021-01-05 05:56 | ED ---
Back Pain HPI - General Chief Complaint: Back Pain/Injury Stated Complaint: Knee Pain Time Seen by Provider: 01/05/21 05:30 Source: patient - Related Data Home Medications Medication Instructions Recorded Confirmed Omeprazole 20 mg PO DAILY PRN 01/06/19 09/16/20 Albuterol Inhaler [Ventolin Hfa 2 puff INHALATION RT-QID PRN 02/13/20 09/16/20 Inhaler] Ergocalciferol [Vitamin D2] 50,000 unit PO MO 02/13/20 09/16/20 Gabapentin 300 mg PO HS 02/13/20 09/16/20 Menthol [Biofreeze] 1 applic TOPICAL BID PRN 09/16/20 09/16/20 Allergies Allergy/AdvReac Type Severity Reaction Status Date / Time dexamethasone [From Decadron] Allergy Anaphylaxis Verified 01/05/21 05:37 NSAIDS (Non-Steroidal Allergy Swelling Verified 01/05/21 05:37 Anti-Inflamma pregabalin [From Lyrica] AdvReac Nausea & Verified 01/05/21 05:37 Vomiting & Diarrhea Review of Systems ROS Statement: Those systems with pertinent positive or pertinent negative responses have been documented in the HPI. ROS Other: All systems not noted in ROS Statement are negative. Past Medical History Past Medical History: Asthma, Diabetes Mellitus Additional Past Medical History / Comment(s): chronic back pain, bulging disc in L5. nerve damage, PCOS, History of Any Multi-Drug Resistant Organisms: None Reported Past Surgical History: No Surgical Hx Reported Past Psychological History: Anxiety Smoking Status: Current every day smoker Past Alcohol Use History: None Reported Past Drug Use History: None Reported Course Vital Signs 01/05/21 05:33 Temperature 97.9 F Pulse Rate 92 Respiratory 18 Rate Blood Pressure 127/87 O2 Sat by Pulse 97 Oximetry Disposition Clinical Impression: Strain of lumbar region, Sciatica Disposition: HOME SELF-CARE Condition: Good Instructions (If sedation given, give patient instructions): Acute Low Back Pain (ED) Is patient prescribed a controlled substance at d/c from ED?: No Referrals: Jerman Soriano MD [Primary Care Provider] - 1-2 days
[2021-01-05] MEDS ORDERED: ACET/COD 300 MG/30 MG STARTER PACK 6 TAB BTL PO STA (06:38)
[2021-01-05 06:50] VITALS: BP 120/80; PULSE 96
== END 2021-01-05 06:55 | disposition home or self-care (01) ==
LOC: EC 05:27
DX: S39.012A Strain of muscle, fascia and tendon of lower back, initial encounter (principal); M54.30 Sciatica, unspecified side; J45.909 Unspecified asthma, uncomplicated; E11.9 Type 2 diabetes mellitus without complications; F41.9 Anxiety disorder, unspecified; F17.200 Nicotine dependence, unspecified, uncomplicated
CPT/HCPCS: 99283; 96372; J1170

== ENCOUNTER 2021-01-29 21:57 | Emergency (ER) | payer OTHER ==
--- NOTE | 2021-01-29 22:51 | ED ---
Syncope HPI - General Chief Complaint: Syncope Stated Complaint: syncope Time Seen by Provider: 01/29/21 22:03 Source: patient Mode of arrival: wheelchair - History of Present Illness Initial Comments: This patient is a 40-year-old woman who presents with complaint that she had a syncopal episode early in the morning today and then a near syncopal episode this evening. The patient states that she usually goes to bed around 5 AM and when she was preparing for that this morning she had single episode after going to the bathroom to her bedroom. She did fall and hit her head against furniture but she feels like there was not significant injury. She slept and then when she was up today she was sitting and while at rest she had an episode where she felt lightheaded like she was going to pass out. Given that she had 2 episodes like this she is here for evaluation. The patient did not have chest pain, palpitation, diaphoresis, dyspnea. She was nauseated with one episode but has not had any vomiting. MD Complaint: loss of consciousness Onset/Timin -: hour(s) Prodromal Symptoms: vision changes, lightheaded, nausea/vomiting -: second(s) Witnessed: yes - by bystander Injuries Sustained Associated with Event: None Current Symptoms: back to baseline Context: standing up Treatments Prior to Arrival: none - Related Data Home Medications Medication Instructions Recorded Confirmed Omeprazole 20 mg PO DAILY@1400 01/06/19 01/29/21 Acetaminophen-Codeine 300-30mg 1 tab PO HS@0300 01/29/21 01/29/21 [Tylenol w/codeine #3] Albuterol Sulfate [Proair Hfa] 2 puff INHALATION RT-QID PRN 01/29/21 01/29/21 Amitriptyline HCl [Elavil] 37.5 mg PO HS 01/29/21 01/29/21 Empagliflozin [Jardiance] 10 mg PO DAILY@1100 01/29/21 01/29/21 Ergocalciferol [Vitamin D2 (1250 1,250 mcg PO TU 01/29/21 01/29/21 Mcg = 24715 Iu)] Multivitamins, Thera [Multivitamin 1 tab PO DAILY@1400 01/29/21 01/29/21 (formulary)] metFORMIN HCL ER [Glucophage XR] 500 mg PO DAILY@1100 01/29/21 01/29/21 Allergies Allergy/AdvReac Type Severity Reaction Status Date / Time dexamethasone [From Decadron] Allergy Anaphylaxis Verified 01/29/21 23:28 NSAIDS (Non-Steroidal Allergy Swelling Verified 01/29/21 23:28 Anti-Inflamma pregabalin [From Lyrica] AdvReac Nausea & Verified 01/29/21 23:28 Vomiting & Diarrhea BANDAID ADHESIVE Allergy Rash/Hives Uncoded 01/29/21 23:28 Review of Systems ROS Statement: Those systems with pertinent positive or pertinent negative responses have been documented in the HPI. ROS Other: All systems not noted in ROS Statement are negative. Constitutional: Denies: fever, chills, weakness Eyes: Denies: vision change Respiratory: Denies: cough, dyspnea Cardiovascular: Reports: syncope. Denies: chest pain, palpitations, orthopnea, edema Gastrointestinal: Reports: nausea, diarrhea. Denies: abdominal pain, vomiting, constipation, melena, hematochezia Genitourinary: Denies: dysuria, hematuria Musculoskeletal: Denies: back pain Skin: Denies: rash Neurological: Denies: headache, weakness, numbness, confusion Past Medical History Past Medical History: Asthma, Diabetes Mellitus Additional Past Medical History / Comment(s): chronic back pain, bulging disc in L5. nerve damage, PCOS, History of Any Multi-Drug Resistant Organisms: None Reported Past Surgical History: No Surgical Hx Reported Past Psychological History: Anxiety Smoking Status: Current every day smoker Past Alcohol Use History: None Reported Past Drug Use History: None Reported General Exam General appearance: alert, in no apparent distress Head exam: Present: atraumatic, normocephalic Eye exam: Present: normal appearance. Absent: scleral icterus, conjunctival injection ENT exam: Present: normal oropharynx Neck exam: Present: normal inspection Respiratory exam: Present: normal lung sounds bilaterally. Absent: respiratory distress, wheezes, rales, rhonchi, stridor Cardiovascular Exam: Present: regular rate, normal rhythm, normal heart sounds. Absent: systolic murmur, diastolic murmur, rubs, gallop GI/Abdominal exam: Present: soft, normal bowel sounds. Absent: distended, tenderness, guarding, rebound, rigid, mass, pulsatile mass Extremities exam: Present: normal inspection, normal capillary refill. Absent: pedal edema, calf tenderness Back exam: Present: normal inspection. Absent: CVA tenderness (R), CVA tenderness (L) Neurological exam: Present: alert, CN II-XII intact. Absent: motor sensory deficit Skin exam: Present: warm, dry, intact, normal color. Absent: rash Course Vital Signs 01/29/21 01/29/21 21:59 22:52 Temperature 98 F Pulse Rate 93 82 Respiratory 19 18 Rate Blood Pressure 125/87 123/81 O2 Sat by Pulse 98 99 Oximetry EKG Findings - EKG Results: EKG: interpreted by SIMI GRIFFINL, sinus rhythm (Rate 87 bpm), normal axis, normal QRS, normal ST/T, no acute changes Medical Decision Making - Lab Data Result diagrams: 01/29/21 22:49 01/29/21 22:49 Lab Results 01/29/21 01/29/21 01/29/21 Range/Units 22:49 22:49 22:49 WBC 16.0 H (3.8-10.6) k/uL RBC 5.53 H (3.80-5.40) m/uL Hgb 16.6 H (11.4-16.0) gm/dL Hct 48.9 H (34.0-46.0) % MCV 88.4 (80.0-100.0) fL MCH 30.0 (25.0-35.0) pg MCHC 34.0 (31.0-37.0) g/dL RDW 12.9 (11.5-15.5) % Plt Count 299 (150-450) k/uL MPV 7.5 Neutrophils % 60 % Lymphocytes % 31 % Monocytes % 5 % Eosinophils % 3 % Basophils % 1 % Neutrophils # 9.6 H (1.3-7.7) k/uL Lymphocytes # 5.0 H (1.0-4.8) k/uL Monocytes # 0.8 (0-1.0) k/uL Eosinophils # 0.4 (0-0.7) k/uL Basophils # 0.1 (0-0.2) k/uL PT 9.5 (9.0-12.0) sec INR 0.9 (<1.2) APTT 23.4 (22.0-30.0) sec D-Dimer 0.31 (<0.60) mg/L FEU Sodium (137-145) mmol/L Potassium (3.5-5.1) mmol/L Chloride (98-107) mmol/L Carbon Dioxide (22-30) mmol/L Anion Gap mmol/L BUN (7-17) mg/dL Creatinine (0.52-1.04) mg/dL Est GFR (CKD-EPI)AfAm (>60 ml/min/1.73 sqM) Est GFR (CKD-EPI)NonAf (>60 ml/min/1.73 sqM) Glucose (74-99) mg/dL Calcium (8.4-10.2) mg/dL Total Bilirubin (0.2-1.3) mg/dL AST (14-36) U/L ALT (4-34) U/L Alkaline Phosphatase (38-126) U/L Troponin I (0.000-0.034) ng/mL Total Protein (6.3-8.2) g/dL Albumin (3.5-5.0) g/dL Urine Color Colorless Urine Appearance Clear (Clear) Urine pH 6.0 (5.0-8.0) Ur Specific [place] 1.003 (1.001-1.035) Urine Protein Negative (Negative) Urine Glucose (UA) 1+ H (Negative) Urine Ketones Negative (Negative) Urine Blood Trace H (Negative) Urine Nitrite Negative (Negative) Urine Bilirubin Negative (Negative) Urine Urobilinogen <2.0 (<2.0) mg/dL Ur Leukocyte Esterase Negative (Negative) Urine RBC 1 (0-5) /hpf Urine WBC 2 (0-5) /hpf Ur Squamous Epith Cells 4 (0-4) /hpf Urine Bacteria Rare H (None) /hpf Urine HCG, Qual (Not Detectd) 01/29/21 01/29/21 01/29/21 Range/Units 22:49 22:49 22:49 WBC (3.8-10.6) k/uL RBC (3.80-5.40) m/uL Hgb (11.4-16.0) gm/dL Hct (34.0-46.0) % MCV (80.0-100.0) fL MCH (25.0-35.0) pg MCHC (31.0-37.0) g/dL RDW (11.5-15.5) % Plt Count (150-450) k/uL MPV Neutrophils % % Lymphocytes % % Monocytes % % Eosinophils % % Basophils % % Neutrophils # (1.3-7.7) k/uL Lymphocytes # (1.0-4.8) k/uL Monocytes # (0-1.0) k/uL Eosinophils # (0-0.7) k/uL Basophils # (0-0.2) k/uL PT (9.0-12.0) sec INR (<1.2) APTT (22.0-30.0) sec D-Dimer (<0.60) mg/L FEU Sodium 137 (137-145) mmol/L Potassium 4.5 (3.5-5.1) mmol/L Chloride 107 (98-107) mmol/L Carbon Dioxide 20 L (22-30) mmol/L Anion Gap 10 mmol/L BUN 13 (7-17) mg/dL Creatinine 0.63 (0.52-1.04) mg/dL Est GFR (CKD-EPI)AfAm >90 (>60 ml/min/1.73 sqM) Est GFR (CKD-EPI)NonAf >90 (>60 ml/min/1.73 sqM) Glucose 81 (74-99) mg/dL Calcium 10.0 (8.4-10.2) mg/dL Total Bilirubin 0.3 (0.2-1.3) mg/dL AST 35 (14-36) U/L ALT 32 (4-34) U/L Alkaline Phosphatase 91 (38-126) U/L Troponin I <0.012 (0.000-0.034) ng/mL Total Protein 7.4 (6.3-8.2) g/dL Albumin 4.3 (3.5-5.0) g/dL Urine Color Urine Appearance (Clear) Urine pH (5.0-8.0) Ur Specific [place] (1.001-1.035) Urine Protein (Negative) Urine Glucose (UA) (Negative) Urine Ketones (Negative) Urine Blood (Negative) Urine Nitrite (Negative) Urine Bilirubin (Negative) Urine Urobilinogen (<2.0) mg/dL Ur Leukocyte Esterase (Negative) Urine RBC (0-5) /hpf Urine WBC (0-5) /hpf Ur Squamous Epith Cells (0-4) /hpf Urine Bacteria (None) /hpf Urine HCG, Qual Not Detected (Not Detectd) Disposition Clinical Impression: Syncope, Leukocytosis Disposition: HOME SELF-CARE Condition: Good Instructions (If sedation given, give patient instructions): Syncope (ED) Additional Instructions: As we discussed, follow-up with Dr. Soriano to schedule the other tests recommended. Return immediately if he develop any new symptoms. Is patient prescribed a controlled substance at d/c from ED?: No Referrals: Jerman Soriano MD [Primary Care Provider] - 1-2 days
[2021-01-29 22:53] VITALS: PULSE 82
--- NOTE | 2021-01-29 22:53 | XR ---
EXAMINATION TYPE: XR chest 1V portable DATE OF EXAM: 01/29/2021 COMPARISON: 02/13/2020 HISTORY: Syncope TECHNIQUE: Single view FINDINGS: Heart and mediastinum are normal. Lungs are clear. Diaphragm is normal. Bony thorax is inta ct. There are chest leads. IMPRESSION: Normal chest. No change.
[2021-01-29 23:06] LABS: Appearance,Urine Clear (Clear); Bacteria,Urine Rare /hpf; Bilirubin,Urine Negative (Negative); Blood,Urine Trace (Negative); Color,Urine Colorless; Glucose,Urine (UA) 1+ (Negative); Ketones,Urine Negative (Negative); Leukocyte Esterase,Urine Negative (Negative); Nitrite,Urine Negative (Negative); Protein,Urine Negative (Negative); RBC,Urine 1 /hpf (0-5); Specific Gravity,Urine 1.003 (1.001-1.035); Squamous Epithelial Cell,Urine 4 /hpf (0-4); Urobilinogen,Urine <2.0 mg/dL (<2.0); WBC,Urine 2 /hpf (0-5)
[2021-01-29 23:08] LABS: Basophils # (A) 0.1 k/uL (0-0.2); Basophils % (A) 1 %; Eosinophils # (A) 0.4 k/uL (0-0.7); Eosinophils % (A) 3 %; HCT 48.9 % (34.0-46.0); HGB 16.6 gm/dL (11.4-16.0); Lymphocytes % (A) 31 %; MCV 88.4 fL (80.0-100.0); Mean Platelet Volume 7.5; Monocytes # (A) 0.8 k/uL (0-1.0); Monocytes % (A) 5 %; Neutrophils # (A) 9.6 k/uL (1.3-7.7); Neutrophils % (A) 60 %; Platelet Count 299 k/uL (150-450); RBC 5.53 m/uL (3.80-5.40); RDW 12.9 % (11.5-15.5)
[2021-01-29 23:18] LABS: INR 0.9 (<1.2); Partial Thromboplastin Time 23.4 sec (22.0-30.0); Prothrombin Time 9.5 sec (9.0-12.0)
[2021-01-29 23:26] LABS: ALT 32 U/L (4-34); AST 35 U/L (14-36); African American GFR (CKD) >90 (>60 ml/min/1.73 sqM); Albumin 4.3 g/dL (3.5-5.0); Alkaline Phosphatase 91 U/L (38-126); Anion Gap 10 mmol/L; Blood Urea Nitrogen 13 mg/dL (7-17); Carbon Dioxide 20 mmol/L (22-30); Chloride 107 mmol/L (98-107); Glucose 81 mg/dL (74-99); Non-African American GFR(CKD) >90 (>60 ml/min/1.73 sqM); Potassium 4.5 mmol/L (3.5-5.1); Sodium 137 mmol/L (137-145); Total Bilirubin 0.3 mg/dL (0.2-1.3); Total Protein 7.4 g/dL (6.3-8.2)
[2021-01-30 01:36] VITALS: BP 118/81; RESP 16
[2021-01-30 01:46] VITALS: TEMP 98.7
== END 2021-01-30 01:45 | disposition home or self-care (01) ==
LOC: EC 21:57
DX: D72.829 Elevated white blood cell count, unspecified (principal); R55 Syncope and collapse; R42 Dizziness and giddiness; R11.2 Nausea with vomiting, unspecified; E11.9 Type 2 diabetes mellitus without complications; J45.909 Unspecified asthma, uncomplicated; F41.9 Anxiety disorder, unspecified; F17.200 Nicotine dependence, unspecified, uncomplicated; Z79.84 Long term (current) use of oral hypoglycemic drugs; Z79.899 Other long term (current) drug therapy; Z88.6 Allergy status to analgesic agent
CPT/HCPCS: 36415; 71045; 80053; 81001; 81025; 84484; 85025; 85379; 85610; 85730; 93005; 99284

== ENCOUNTER → 2021-03-08 | Outpatient (CLI) | payer OTHER ==
[2021-03-08 20:21] LABS: HCT 50.5 % (37.2-46.3); HGB 15.9 g/dL (12.0-15.0); MCH 28.4 pg (27.0-32.0); MCHC 31.5 g/dL (32.0-37.0); MCV 90.2 fL (80.0-97.0); Mean Platelet Volume 10.1 fL (9.5-12.2); Platelet Count 287 X 10*3/uL (140-440); RDW 13.1 % (11.5-14.5); WBC 14.81 X 10*3/uL (4.50-10.00)
[2021-03-08 21:16] LABS: Basophils # (M) 0.15 X 10*3/uL (0.00-0.10); Eosinophils # (M) 0.89 X 10*3/uL (0.04-0.35); Lymphocytes # (M) 6.52 X 10*3/uL (0.90-5.00); Monocytes # (M) 0.59 X 10*3/uL (0.20-1.00); Neutrophils # (M) 6.66 X 10*3/uL (2.00-8.90); Neutrophils % (M) 45 %
[2021-03-08 23:15] LABS: Erythrocyte Sedimentation Rate 6 mm/Hr (0-20)
== END | disposition home or self-care (01) ==
LOC: LABWHC1 12:45
PROVIDERS: ATTEND Family Medicine
DX: E11.9 Type 2 diabetes mellitus without complications (principal); R53.83 Other fatigue
CPT/HCPCS: 36415; 83036; 85025; 85652; 86140; 86376; 86800

== ENCOUNTER → 2021-03-15 | Outpatient (CLI) | payer OTHER ==
--- NOTE | 2021-03-15 08:43 | MR ---
EXAMINATION TYPE: MR angio head wo con DATE OF EXAM: 03/15/2021 COMPARISON: NONE HISTORY: Headaches TECHNIQUE: Utilizing 3-D [id number] intracranial MRA of the [place] was performed. FINDINGS: The vertebrobasilar and carotid systems are patent. There is no sizable aneurysm or vascular malform ation. Left vertebral artery dominant. IMPRESSION: 1. No evidence of vascular malformation or sizable aneurysm.
--- NOTE | 2021-03-15 08:52 | MR ---
EXAMINATION TYPE: MR brain wo con DATE OF EXAM: 03/15/2021 COMPARISON: NONE HISTORY: Headaches TECHNIQUE: T1-weighted sagittal, T2, FLAIR, and diffusion axial, and T2 coronal coronal views of the brain are submitted. FINDINGS: There is no evidence of acute ischemia. The ventricles, basal cisterns, and sulci overlying the conv exities are consistent with the patient's age. There is no mass effect. Craniocervical junction maintained. Sella turcica has a normal appearance. There are 3 or 4 tiny foci of abnormal signal seen scattered throughout the white matter bilaterally. No cerebellopontine angle mass. IMPRESSION: 1. No acute intracranial process. Tiny foci of abnormal signal in the white matter are too small to c haracterize could be on the basis of migraine headaches. Remote white matter ischemia or mild demyeli nating process felt less likely but not excluded.. 2. Mild chronic sinusitis. 3. Trace amount of fluid surrounding the optic nerves is a nonspecific finding can occasionally be se en with papilledema correlate clinically.
== END | disposition home or self-care (01) ==
LOC: RADMRIMAIN 07:20
PROVIDERS: ATTEND Family Medicine
DX: R51.9 Headache, unspecified (principal); J32.9 Chronic sinusitis, unspecified
CPT/HCPCS: 70544; 70551

== ENCOUNTER 2021-04-20 00:27 | Emergency (ER) | payer OTHER ==
[2021-04-20 00:33] VITALS: TEMP 98
[2021-04-20] MEDS ORDERED: ACETAMINOPHEN TAB 500 MG TAB PO STA (02:35)
[2021-04-20] MEDS ORDERED: AMOXIC-POT CLAV 875MG STARTER PACK 2 TAB BTL PO STA (02:35)
[2021-04-20 02:38] VITALS: BP 117/84; PULSE 91; RESP 20
--- NOTE | 2021-04-20 02:38 | ED ---
URI HPI - General Chief Complaint: Upper Respiratory Infection Stated Complaint: Congestion, RT flank pain Source: patient, RN notes reviewed Mode of arrival: ambulatory Limitations: no limitations - History of Present Illness Initial Comments: This is a 40-year-old female presents emergency Department chief complaint of cough congestion here shows right ear pain. Patient states symptoms started 4 days ago increasing nasal congestion, productive cough. Patient does have a history of asthma. Patient states she developed severe right ear pain. Denies any neck pain or neck stiffness patient states she has multiple ALLERGIES to steroids. Patient denies any GI symptoms including nausea, vomiting diarrhea constipation no COVID-19 exposures noted. - Related Data Home Medications Medication Instructions Recorded Confirmed Omeprazole 20 mg PO DAILY@1400 01/06/19 01/29/21 Acetaminophen-Codeine 300-30mg 1 tab PO HS@0300 01/29/21 01/29/21 [Tylenol w/codeine #3] Albuterol Sulfate [Proair Hfa] 2 puff INHALATION RT-QID PRN 01/29/21 01/29/21 Amitriptyline HCl [Elavil] 37.5 mg PO HS 01/29/21 01/29/21 Empagliflozin [Jardiance] 10 mg PO DAILY@1100 01/29/21 01/29/21 Ergocalciferol [Vitamin D2 (1250 1,250 mcg PO TU 01/29/21 01/29/21 Mcg = 73234 Iu)] Multivitamins, Thera [Multivitamin 1 tab PO DAILY@1400 01/29/21 01/29/21 (formulary)] metFORMIN HCL ER [Glucophage XR] 500 mg PO DAILY@1100 01/29/21 01/29/21 Previous Rx's Medication Instructions Recorded Amoxicillin/Potassium Clav 1 tab PO Q12HR #20 tab 04/20/21 [Augmentin 875-125 Tablet] Allergies Allergy/AdvReac Type Severity Reaction Status Date / Time dexamethasone [From Decadron] Allergy Anaphylaxis Verified 04/20/21 00:33 NSAIDS (Non-Steroidal Allergy Swelling Verified 04/20/21 00:33 Anti-Inflamma prednisone Allergy Anaphylaxis Verified 04/20/21 00:34 methylprednisolone AdvReac Anaphylaxis Verified 04/20/21 00:34 [From Solu-Medrol] pregabalin [From Lyrica] AdvReac Nausea & Verified 04/20/21 00:33 Vomiting & Diarrhea BANDAID ADHESIVE Allergy Rash/Hives Uncoded 04/20/21 00:33 Review of Systems ROS Statement: Those systems with pertinent positive or pertinent negative responses have been documented in the HPI. ROS Other: All systems not noted in ROS Statement are negative. Past Medical History Past Medical History: Asthma, Diabetes Mellitus Additional Past Medical History / Comment(s): chronic back pain, bulging disc in L5. nerve damage, PCOS, History of Any Multi-Drug Resistant Organisms: None Reported Past Surgical History: No Surgical Hx Reported Past Psychological History: Anxiety Smoking Status: Current every day smoker Past Alcohol Use History: None Reported Past Drug Use History: None Reported General Exam Limitations: no limitations General appearance: alert, in no apparent distress Head exam: Present: atraumatic, normocephalic, normal inspection Eye exam: Present: normal appearance, PERRL, EOMI. Absent: scleral icterus, conjunctival injection, periorbital swelling ENT exam: Present: normal oropharynx, mucous membranes dry, mucous membranes moist. Absent: TM's normal bilaterally (Right TM erythematous, fluid noted) Neck exam: Present: normal inspection, full ROM. Absent: tenderness, meningismus, lymphadenopathy Respiratory exam: Present: normal lung sounds bilaterally. Absent: respiratory distress, wheezes, rales, rhonchi, stridor Cardiovascular Exam: Present: regular rate (Patient was not tachycardic on exam), normal rhythm, normal heart sounds. Absent: systolic murmur, diastolic murmur, rubs, gallop, clicks Course Vital Signs 04/20/21 00:30 Temperature 98.0 F Pulse Rate 124 H Respiratory 18 Rate Blood Pressure 148/95 O2 Sat by Pulse 99 Oximetry Medical Decision Making - Medical Decision Making Patient has a right otitis media patient had a negative COVID-19 test. Patient discharged in stable condition return parameters were discussed. - Lab Data Lab Results 04/20/21 Range/Units 00:40 Coronavirus (PCR) Not Detected (Not Detectd) Disposition Clinical Impression: Acute upper respiratory infection, Otitis media Disposition: HOME SELF-CARE Condition: Stable Instructions (If sedation given, give patient instructions): Upper Respiratory Infection (ED) Additional Instructions: Please return to the Emergency Department if symptoms worsen or any other concerns. Prescriptions: Amoxicillin/Potassium Clav [Augmentin 875-125 Tablet] 1 tab PO Q12HR #20 tab Is patient prescribed a controlled substance at d/c from ED?: No Referrals: Terrence Soriano MD [Primary Care Provider] - 1-2 days Time of Disposition: 02:37
== END 2021-04-20 02:44 | disposition home or self-care (01) ==
LOC: EC 00:27
DX: J06.9 Acute upper respiratory infection, unspecified (principal); H66.91 Otitis media, unspecified, right ear; F17.200 Nicotine dependence, unspecified, uncomplicated; J45.909 Unspecified asthma, uncomplicated; E11.9 Type 2 diabetes mellitus without complications; Z88.8 Allergy status to other drugs, medicaments and biological substances; Z20.822 Contact with and (suspected) exposure to COVID-19; Z88.6 Allergy status to analgesic agent; Z91.09 Other allergy status, other than to drugs and biological substances; Z79.84 Long term (current) use of oral hypoglycemic drugs
CPT/HCPCS: 87635; 99283

== ENCOUNTER → 2021-05-29 | Outpatient (CLI) | payer OTHER ==
--- NOTE | 2021-05-29 13:55 | XR ---
EXAMINATION TYPE: XR chest 2V DATE OF EXAM: 05/29/2021 COMPARISON: Chest x-ray 01/29/2021 HISTORY: Cough TECHNIQUE: Frontal and lateral views of the chest are obtained. FINDINGS: There is no focal air space opacity, pleural effusion, or pneumothorax seen. The cardiac silhouette size is within normal limits. There is elevation of the right hemidiaphragm. The osseous structures are intact. IMPRESSION: No acute cardiopulmonary process.
== END | disposition home or self-care (01) ==
LOC: RADXRMAIN 11:29
PROVIDERS: ATTEND Family Medicine
DX: R05.9 Cough, unspecified (principal)
CPT/HCPCS: 71046

== ENCOUNTER → 2021-05-29 | Outpatient (CLI) | payer OTHER ==
[2021-05-29 14:16] LABS: Basophils # (A) 0.06 X 10*3/uL (0.00-0.10); Basophils % (A) 0.3 %; Eosinophils # (A) 0.17 X 10*3/uL (0.04-0.35); Eosinophils % (A) 0.9 %; HCT 48.1 % (37.2-46.3); HGB 15.5 g/dL (12.0-15.0); Lymphocytes # (A) 7.63 X 10*3/uL (0.90-5.00); MCHC 32.2 g/dL (32.0-37.0); MCV 90.1 fL (80.0-97.0); Monocytes # (A) 1.07 X 10*3/uL (0.20-1.00); Monocytes % (A) 5.6 %; Neutrophils % (A) 52.5 %; Platelet Count 299 X 10*3/uL (140-440); RBC 5.34 X 10*6/uL (4.10-5.20); RDW 13.2 % (11.5-14.5); WBC 19.07 X 10*3/uL (4.50-10.00)
[2021-05-29 14:24] LABS: ALT 24 U/L (8-44); AST 17 U/L (13-35); African American GFR (CKD) 97.9 (60.0-200.0); Albumin 4.4 g/dL (3.8-4.9); Alkaline Phosphatase 98 U/L (41-126); BUN/Creat Ratio 17.11 Ratio (12.00-20.00); Blood Urea Nitrogen 14.8 mg/dL (9.0-27.0); Calcium 10.6 mg/dL (8.7-10.3); Carbon Dioxide 26.6 mmol/L (20.0-27.5); Chloride 102 mmol/L (96-109); Globulin 2.4 g/dL (1.6-3.3); Glucose 115 mg/dL (70-110); Non-African American GFR(CKD) 84.5 (60.0-200.0); Potassium 4.2 mmol/L (3.5-5.5); Sodium 141 mmol/L (135-145); Total Bilirubin <0.20 mg/dL (0.30-1.20); Total Protein 6.8 g/dL (6.2-8.2)
[2021-05-29 17:54] LABS: Erythrocyte Sedimentation Rate 7 mm/Hr (0-20)
== END | disposition home or self-care (01) ==
LOC: LABWHC1 11:06
PROVIDERS: ATTEND Family Medicine
DX: R05.9 Cough, unspecified (principal)
CPT/HCPCS: 36415; 80053; 85025; 85379; 85652; 86140

== ENCOUNTER 2021-07-08 12:50 | Emergency (ER) | payer OTHER ==
[2021-07-08 12:54] VITALS: RESP 18; TEMP 98.4
--- NOTE | 2021-07-08 13:42 | ED ---
Abdominal Pain HPI - General Chief Complaint: Abdominal Pain Stated Complaint: Vomiting/neck pain Time Seen by Provider: 07/08/21 13:03 Source: patient, RN notes reviewed Mode of arrival: ambulatory Limitations: no limitations - History of Present Illness Initial Comments: This is a pleasant 40-year-old female with history of asthma and diabetes. She states that she has been vomiting for about the last 52 hours. Patient states she has had several episodes of vomiting. She described watering vomiting with whenever she tries to eat. No hematemesis or coffee-ground emesis. Patient has no problems with problems. Patient has a sharp pain in the epigastric area which is somewhat intermittent. Patient states she was also vomiting and b elieves she strained a muscle in the right side of her neck. She states anytime she moves this area exacerbates the pain. No headache, no fever or chills, no changes in vision or hearing, no sore throat or difficulty with speech,, no chest pain or shortness of breath, , no changes in urination or bowel movements, no numbness or tingling, no extremity pain, no skin rashes or lesions. - Related Data Home Medications Medication Instructions Recorded Confirmed Omeprazole 20 mg PO DAILY@1400 01/06/19 01/29/21 Acetaminophen-Codeine 300-30mg 1 tab PO HS@0300 01/29/21 01/29/21 [Tylenol w/codeine #3] Albuterol Sulfate [Proair Hfa] 2 puff INHALATION RT-QID PRN 01/29/21 01/29/21 Amitriptyline HCl [Elavil] 37.5 mg PO HS 01/29/21 01/29/21 Empagliflozin [Jardiance] 10 mg PO DAILY@109901/29/21 01/29/21 Ergocalciferol [Vitamin D2 (1250 1,250 mcg PO TU 01/29/21 01/29/21 Mcg = 61674 Iu)] Multivitamins, Thera [Multivitamin 1 tab PO DAILY@1400 01/29/21 01/29/21 (formulary)] metFORMIN HCL ER [Glucophage XR] 500 mg PO DAILY@1100 01/29/21 01/29/21 Previous Rx's Medication Instructions Recorded Amoxicillin/Potassium Clav 1 tab PO Q12HR #20 tab 04/20/21 [Augmentin 875-125 Tablet] Acetaminophen [Tylenol] 500 mg PO Q4-6H PRN #24 tab 07/08/21 Baclofen 10 mg PO TID PRN #20 tab 07/08/21 Famotidine [Pepcid] 20 mg PO BID #20 tablet 07/08/21 Ondansetron [Zofran ODT] 4 mg PO Q8HR #20 tab 07/08/21 Sucralfate [Carafate] 1 gm PO BID 10 Days #200 ml 07/08/21 Allergies Allergy/AdvReac Type Severity Reaction Status Date / Time dexamethasone [From Decadron] Allergy Anaphylaxis Verified 07/08/21 12:54 NSAIDS (Non-Steroidal Allergy Swelling Verified 07/08/21 12:54 Anti-Inflamma prednisone Allergy Anaphylaxis Verified 07/08/21 12:54 methylprednisolone AdvReac Anaphylaxis Verified 07/08/21 12:54 [From Solu-Medrol] pregabalin [From Lyrica] AdvReac Nausea & Verified 07/08/21 12:54 Vomiting & Diarrhea BANDAID ADHESIVE Allergy Rash/Hives Uncoded 07/08/21 12:54 Review of Systems ROS Statement: Those systems with pertinent positive or pertinent negative responses have been documented in the HPI. ROS Other: All systems not noted in ROS Statement are negative. Past Medical History Past Medical History: Asthma, Diabetes Mellitus Additional Past Medical History / Comment(s): chronic back pain, bulging disc in L5. nerve damage, PCOS, History of Any Multi-Drug Resistant Organisms: None Reported Past Surgical History: No Surgical Hx Reported Past Psychological History: Anxiety Smoking Status: Current every day smoker Past Alcohol Use History: None Reported Past Drug Use History: None Reported General Exam - General Exam Comments Initial Comments: Obese female in mild distress secondary to vomiting. Patient does not appear to be ill or toxic. Limitations: no limitations General appearance: alert Head exam: Present: atraumatic, normocephalic, normal inspection Eye exam: Present: normal appearance, PERRL, EOMI. Absent: scleral icterus, conjunctival injection, periorbital swelling ENT exam: Present: normal exam, mucous membranes moist Neck exam: Present: normal inspection, tenderness, other (Tenderness to the right neck musculature, range of motion limited by pain. No bony point tendern ess. No mass. No lymphadenopathy). Absent: meningismus, full ROM, lymphadenopathy Respiratory exam: Present: normal lung sounds bilaterally. Absent: respiratory distress, wheezes, rales, rhonchi, stridor, chest wall tenderness, accessory muscle use, decreased breath sounds, prolonged expiratory, other Cardiovascular Exam: Present: regular rate, normal rhythm, normal heart sounds. Absent: systolic murmur, diastolic murmur, rubs, gallop, clicks GI/Abdominal exam: Present: soft, tenderness, guarding, hyperactive bowel sounds, other (Epigastric and right upper quadrant tenderness). Absent: distended, rebound, rigid Extremities exam: Present: normal inspection, full ROM, normal capillary refill, other (Patient has tenderness to the right neck musculature to include the sternocleidomastoid muscle, no mass, no erythema, no lesions). Absent: tenderness, pedal edema, joint swelling, calf tenderness Back exam: Present: normal inspection Neurological exam: Present: alert, oriented X3, CN II-XII intact Psychiatric exam: Present: normal affect, normal mood Skin exam: Present: warm, dry, intact, normal color. Absent: rash Course Vital Signs 07/08/21 07/08/21 07/08/21 12:51 14:30 15:58 Temperature 98.4 F Pulse Rate 94 78 72 Respiratory 18 18 18 Rate Blood Pressure 128/95 140/89 138/92 O2 Sat by Pulse 99 99 99 Oximetry - Reevaluation(s) Reevaluation #1: 07/08/21 16:03 Medical record is reviewed Symptoms are improved here in the emergency department Patient is informed of results and questions answered Patient in no distress Medical Decision Making - Medical Decision Making She presents to symptomology consistent with gastritis. There is some right upper quadrant tenderness. Gallbladder ultrasound was ordered, no evidence of pathology. She was vomiting also pulled a muscle in the right side of her neck during the vomiting episode. There was no crepitus. No subcutaneous emphysema, neck exam consistent with muscular pain. Range motion somewhat limited. No pain at rest. There was some tenderness to palpation along the right sternocleidomastoid muscle. TMs are pearly mas bilaterally. No bony point tenderness. No mass. No lymphadenopathy. Remainder of the HEENT exam was benign. Airway was patent Patient was told to return to the ER for any signs or symptoms worsen. Told to return immediately if any other problems arise. All questions answered. Treatment plan discussed. Patient in agreement Every effort has been made to ensure accuracy of this dictation. However, due to the limitations of electronic medical records and dictation devices, errors in charting still occur. Patient given muscle relaxer, we'll add on Carafate and Pepcid to the patient's regimen of omeprazole. Zofran given. Patient told to follow-up with her primary care physician on Saturday, patient may need reevaluation by gastroenterology if symptoms do not nura. Clear liquid diet for 12-24 hours. All questions answered. Patient agrees with treatment plan. Patient was reassessed prior to discharge is no distress, essentially asymptomatic aside from the muscular pain White blood cell count of 14,600 without left shift is likely due to inflamm atory process, no evidence of infectious etiology--note that the patient has had leukocytosis on several previous visits - Lab Data Result diagrams: 07/08/21 13:47 07/08/21 13:47 Lab Results 07/08/21 07/08/21 07/08/21 Range/Units 13:47 13:47 13:47 WBC 14.6 H (3.8-10.6) k/uL RBC 5.07 (3.80-5.40) m/uL Hgb 15.6 (11.4-16.0) gm/dL Hct 46.6 H (34.0-46.0) % MCV 91.8 (80.0-100.0) fL MCH 30.7 (25.0-35.0) pg MCHC 33.5 (31.0-37.0) g/dL RDW 12.9 (11.5-15.5) % Plt Count 282 (150-450) k/uL MPV 6.9 Neutrophils % 56 % Lymphocytes % 36 % Monocytes % 4 % Eosinophils % 2 % Basophils % 0 % Neutrophils # 8.2 H (1.3-7.7) k/uL Lymphocytes # 5.3 H (1.0-4.8) k/uL Monocytes # 0.5 (0-1.0) k/uL Eosinophils # 0.4 (0-0.7) k/uL Basophils # 0.1 (0-0.2) k/uL Sodium (137-145) mmol/L Potassium (3.5-5.1) mmol/L Chloride (98-107) mmol/L Carbon Dioxide (22-30) mmol/L Anion Gap mmol/L BUN (7-17) mg/dL Creatinine (0.52-1.04) mg/dL Est GFR (CKD-EPI)AfAm (>60 ml/min/1.73 sqM) Est GFR (CKD-EPI)NonAf (>60 ml/min/1.73 sqM) Glucose (74-99) mg/dL Calcium (8.4-10.2) mg/dL Total Bilirubin (0.2-1.3) mg/dL AST (14-36) U/L ALT (4-34) U/L Alkaline Phosphatase (38-126) U/L Total Protein (6.3-8.2) g/dL Albumin (3.5-5.0) g/dL Lipase (23-300) U/L Urine Color Light Yellow Urine Appearance Cloudy H (Clear) Urine pH 7.0 (5.0-8.0) Ur Specific [place] 1.009 (1.001-1.035) Urine Protein Negative (Negative) Urine Glucose (UA) Negative (Negative) Urine Ketones Negative (Negative) Urine Blood Negative (Negative) Urine Nitrite Negative (Negative) Urine Bilirubin Negative (Negative) Urine Urobilinogen <2.0 (<2.0) mg/dL Ur Leukocyte Esterase Small H (Negative) Urine RBC 3 (0-5) /hpf Urine WBC 4 (0-5) /hpf Ur Squamous Epith Cells 15 H (0-4) /hpf Urine Bacteria Rare H (None) /hpf Urine HCG, Qual Not Detected (Not Detectd) 07/08/21 Range/Units 13:47 WBC (3.8-10.6) k/uL RBC (3.80-5.40) m/uL Hgb (11.4-16.0) gm/dL Hct (34.0-46.0) % MCV (80.0-100.0) fL MCH (25.0-35.0) pg MCHC (31.0-37.0) g/dL RDW (11.5-15.5) % Plt Count (150-450) k/uL MPV Neutrophils % % Lymphocytes % % Monocytes % % Eosinophils % % Basophils % % Neutrophils # (1.3-7.7) k/uL Lymphocytes # (1.0-4.8) k/uL Monocytes # (0-1.0) k/uL Eosinophils # (0-0.7) k/uL Basophils # (0-0.2) k/uL Sodium 138 (137-145) mmol/L Potassium 4.2 (3.5-5.1) mmol/L Chloride 109 H (98-107) mmol/L Carbon Dioxide 21 L (22-30) mmol/L Anion Gap 8 mmol/L BUN 11 (7-17) mg/dL Creatinine 0.73 (0.52-1.04) mg/dL Est GFR (CKD-EPI)AfAm >90 (>60 ml/min/1.73 sqM) Est GFR (CKD-EPI)NonAf >90 (>60 ml/min/1.73 sqM) Glucose 104 H (74-99) mg/dL Calcium 9.3 (8.4-10.2) mg/dL Total Bilirubin 0.4 (0.2-1.3) mg/dL AST 24 (14-36) U/L ALT 22 (4-34) U/L Alkaline Phosphatase 88 (38-126) U/L Total Protein 7.3 (6.3-8.2) g/dL Albumin 4.2 (3.5-5.0) g/dL Lipase 87 (23-300) U/L Urine Color Urine Appearance (Clear) Urine pH (5.0-8.0) Ur Specific [place] (1.001-1.035) Urine Protein (Negative) Urine Glucose (UA) (Negative) Urine Ketones (Negative) Urine Blood (Negative) Urine Nitrite (Negative) Urine Bilirubin (Negative) Urine Urobilinogen (<2.0) mg/dL Ur Leukocyte Esterase (Negative) Urine RBC (0-5) /hpf Urine WBC (0-5) /hpf Ur Squamous Epith Cells (0-4) /hpf Urine Bacteria (None) /hpf Urine HCG, Qual (Not Detectd) Disposition Clinical Impression: Gastritis, Strain of neck muscle, Leukocytosis Narrative: Chronic leukocytosis Disposition: HOME SELF-CARE Condition: Good Instructions (If sedation given, give patient instructions): Gastritis (ED), Cervical Strain (ED) Additional Instructions: Clear liquids for the next 12-24 hours. Advance diet thereafter as tolerated. Make an appointment on Saturday morning with your regular doctor. Follow-up with your regular physician as directed. Return to the ER immediately if any symptoms worsen, new symptoms arise, or any other problems develop. Prescriptions: Baclofen 10 mg PO TID PRN #20 tab PRN Reason: Muscle Pain Sucralfate [Carafate] 1 gm PO BID 10 Days #200 ml Famotidine [Pepcid] 20 mg PO BID #20 tablet Acetaminophen [Tylenol] 500 mg PO Q4-6H PRN #24 tab PRN Reason: Pain Ondansetron [Zofran ODT] 4 mg PO Q8HR #20 tab Is patient prescribed a controlled substance at d/c from ED?: No Referrals: Jerman Soriano MD [Primary Care Provider] - 07/10/21 8:00 am Time of Disposition: 16:04
[2021-07-08] MEDS: ONDANSETRON 4 MG/2 ML VIAL IVP STA ×2 (13:48→14:30)
[2021-07-08] MEDS: FAMOTIDINE 20 MG/2 ML VIAL IV STA (13:48)
[2021-07-08] MEDS: SODIUM CHLORIDE 0.9% 1,000 ML IV STA (13:48)
[2021-07-08] MEDS: PANTOPRAZOLE 40 MG/10 ML VIAL IVP STA (13:49)
[2021-07-08] MEDS: MORPHINE SULFATE 4 MG/ML SYRINGE IV STA (13:49)
[2021-07-08 13:52] LABS: Basophils # (A) 0.1 k/uL (0-0.2); Basophils % (A) 0 %; Eosinophils # (A) 0.4 k/uL (0-0.7); Eosinophils % (A) 2 %; HCT 46.6 % (34.0-46.0); HGB 15.6 gm/dL (11.4-16.0); Lymphocytes # (A) 5.3 k/uL (1.0-4.8); Lymphocytes % (A) 36 %; MCH 30.7 pg (25.0-35.0); MCHC 33.5 g/dL (31.0-37.0); MCV 91.8 fL (80.0-100.0); Mean Platelet Volume 6.9; Monocytes # (A) 0.5 k/uL (0-1.0); Monocytes % (A) 4 %; Neutrophils # (A) 8.2 k/uL (1.3-7.7); Neutrophils % (A) 56 %; Platelet Count 282 k/uL (150-450); RBC 5.07 m/uL (3.80-5.40); RDW 12.9 % (11.5-15.5); WBC 14.6 k/uL (3.8-10.6)
[2021-07-08 14:00] LABS: Appearance,Urine Cloudy (Clear); Bacteria,Urine Rare /hpf; Bilirubin,Urine Negative (Negative); Blood,Urine Negative (Negative); Color,Urine Light Yellow; Glucose,Urine (UA) Negative (Negative); Ketones,Urine Negative (Negative); Leukocyte Esterase,Urine Small (Negative); Nitrite,Urine Negative (Negative); Protein,Urine Negative (Negative); RBC,Urine 3 /hpf (0-5); Specific Gravity,Urine 1.009 (1.001-1.035); Squamous Epithelial Cell,Urine 15 /hpf (0-4); Urobilinogen,Urine <2.0 mg/dL (<2.0); WBC,Urine 4 /hpf (0-5)
[2021-07-08 14:03] LABS: ALT 22 U/L (4-34); AST 24 U/L (14-36); African American GFR (CKD) >90 (>60 ml/min/1.73 sqM); Albumin 4.2 g/dL (3.5-5.0); Alkaline Phosphatase 88 U/L (38-126); Anion Gap 8 mmol/L; Blood Urea Nitrogen 11 mg/dL (7-17); Calcium 9.3 mg/dL (8.4-10.2); Carbon Dioxide 21 mmol/L (22-30); Chloride 109 mmol/L (98-107); Glucose 104 mg/dL (74-99); Lipase 87 U/L (23-300); Non-African American GFR(CKD) >90 (>60 ml/min/1.73 sqM); Potassium 4.2 mmol/L (3.5-5.1); Sodium 138 mmol/L (137-145); Total Bilirubin 0.4 mg/dL (0.2-1.3); Total Protein 7.3 g/dL (6.3-8.2)
--- NOTE | 2021-07-08 14:31 | XR ---
EXAMINATION TYPE: XR abdomen acute w cxr DATE OF EXAM: 07/08/2021 COMPARISON: 1721 HISTORY: Gastritis, abdominal pain TECHNIQUE: PA chest radiograph. Supine and upright abdominal radiographs FINDINGS: No focal airspace opacity, pneumothorax or effusion. Normal cardiomediastinal silhouette. No pneumoperitoneum or portal venous gas seen. Large stool burden in the colon. No intestinal obstruction. No abnormal calcification seen. No acute osseous abnormalities seen. IMPRESSION: 1. No acute cardiopulmonary process. 2. No intestinal obstruction or free air.
--- NOTE | 2021-07-08 15:28 | US ---
EXAMINATION TYPE: US gallbladder DATE OF EXAM: 07/08/2021 COMPARISON: CT 01/04/2020 CLINICAL HISTORY: Right upper quadrant and epigastric pain. EXAM MEASUREMENTS: Liver Length: 17.6 cm Gallbladder Wall: 0.2 cm CBD: 0.4 cm Right Kidney: 12.2 x 4.3 x 6.0 cm Pancreas: Tail obscured by overlying bowel gas Liver: measures 17.6 cm, difficult to penetrate, fatty sparing noted around gallbladder. Gallbladder: No shadowing calculi seen Evidence for sonographic Atkinson's sign: Yes CBD: wnl Right Kidney: No hydronephrosis or masses seen IMPRESSION: 1. Heterogeneous liver with increased hepatic parenchyma suggestive of hepatocellular disease such as steatosis. 2. No sonographic findings of cholelithiasis or acute cholecystitis.
[2021-07-08] MEDS: ORPHENADRINE 30 MG/ML 2 ML VIAL IM STA (15:58)
[2021-07-08 16:00] VITALS: BP 138/92; PULSE 72
== END 2021-07-08 16:26 | disposition home or self-care (01) ==
LOC: EC 12:50
DX: K29.70 Gastritis, unspecified, without bleeding (principal); S16.1XXA Strain of muscle, fascia and tendon at neck level, initial encounter; D72.829 Elevated white blood cell count, unspecified; J45.909 Unspecified asthma, uncomplicated; E11.9 Type 2 diabetes mellitus without complications; F41.9 Anxiety disorder, unspecified; F17.200 Nicotine dependence, unspecified, uncomplicated; Z79.84 Long term (current) use of oral hypoglycemic drugs
CPT/HCPCS: 36415; 80053; 83690; 85025; 81001; 81025; 74022; 76705; 99284; 96374; 96375 ×3; 96361 ×2; 96372; J2270; J2360; J2405; C9113

== ENCOUNTER → 2021-12-08 | Outpatient (CLI) | payer OTHER ==
[2021-12-08 22:20] LABS: Basophils # (A) 0.06 X 10*3/uL (0.00-0.10); Basophils % (A) 0.4 %; Eosinophils # (A) 0.11 X 10*3/uL (0.04-0.35); Eosinophils % (A) 0.7 %; HCT 50.4 % (37.2-46.3); HGB 16.1 g/dL (12.0-15.0); Immature Grans, Automated 0.6 %; Lymphocytes # (A) 4.22 X 10*3/uL (0.90-5.00); Lymphocytes % (A) 28.7 %; MCH 28.9 pg (27.0-32.0); MCHC 31.9 g/dL (32.0-37.0); MCV 90.3 fL (80.0-97.0); Mean Platelet Volume 10.1 fL (9.5-12.2); Monocytes # (A) 0.86 X 10*3/uL (0.20-1.00); Monocytes % (A) 5.9 %; NRBC Per 100 WBC 0 /100 WBCS (0.0-0.0); Neutrophils # (A) 9.35 X 10*3/uL (1.80-7.70); Neutrophils % (A) 63.7 %; Platelet Count 322 X 10*3/uL (140-440); RBC 5.58 X 10*6/uL (4.10-5.20); WBC 14.69 X 10*3/uL (4.50-10.00)
[2021-12-08 23:09] LABS: African American GFR (CKD) 107.4 (60.0-200.0); Albumin 4.6 g/dL (3.8-4.9); Albumin/Globulin Ratio 1.8 (1.60-3.17); Anion Gap 15.6 mmol/L (10.00-18.00); BUN/Creat Ratio 15.18 Ratio (12.00-20.00); Blood Urea Nitrogen 12.1 mg/dL (9.0-27.0); Calcium 10.1 mg/dL (8.7-10.3); Carbon Dioxide 21.4 mmol/L (20.0-27.5); Globulin 2.6 g/dL (1.6-3.3); Non-African American GFR(CKD) 92.6 (60.0-200.0); Potassium 4.3 mmol/L (3.5-5.5); T4, Free (Free Thyroxine) 1.46 ng/dL (0.800-1.800); Total Bilirubin 0.3 mg/dL (0.30-1.20); Total Protein 7.2 g/dL (6.2-8.2)
== END | disposition home or self-care (01) ==
LOC: LABWHC1 13:57
PROVIDERS: ATTEND Internal Medicine
DX: R16.2 Hepatomegaly with splenomegaly, not elsewhere classified (principal); R11.0 Nausea; R10.84 Generalized abdominal pain
CPT/HCPCS: 36415; 80053; 83036; 83880; 84144; 84439; 84443; 85025

== ENCOUNTER 2021-12-23 09:58 | Emergency (ER) | payer OTHER ==
[2021-12-23 10:28] VITALS: BP 115/75; PULSE 74; RESP 16; TEMP 98.1
--- NOTE | 2021-12-23 10:57 | ED ---
Wound/Laceration HPI - General Chief Complaint: Wound/Laceration Stated Complaint: lt arm wound Time Seen by Provider: 12/23/21 10:09 Source: patient, RN notes reviewed Mode of arrival: ambulatory Limitations: no limitations - History of Present Illness Initial Comments: This is a 41-year-old female who presents to the emergency department for a possible allergic reaction. A couple of days ago, she had a tattoo done on the left forearm. Since getting the tattoo, she has had pain around the site and feelings of pinpricks on both arms and the chest. Denies any shortness of breath. Also states that she is losing color to the tattoo and is getting blistering around it. She had a similar problem with the tattoo on her right arm. She's been applying Neosporin to the area on the arm, however she states that she is unable to sleep due to the pain. She is unable to take steroids, states that they make her sick to her stomach. She is requesting treatment with pain medication. States that Tylenol 500 mg was helpful when she took it. Denies any fevers, chills, sore throat, cough, dyspnea, chest pain, palpitations, abdominal pain, nausea, vomiting, diarrhea, back pain, or headaches. Onset/Timin -: days(s) Extremity Location: Left: Forearm - Related Data Home Medications Medication Instructions Recorded Confirmed Omeprazole 20 mg PO DAILY@1400 01/06/19 01/29/21 Acetaminophen-Codeine 300-30mg 1 tab PO HS@0300 01/29/21 01/29/21 [Tylenol w/codeine #3] Albuterol Sulfate [Proair Hfa] 2 puff INHALATION RT-QID PRN 01/29/21 01/29/21 Amitriptyline HCl [Elavil] 37.5 mg PO HS 01/29/21 01/29/21 Empagliflozin [Jardiance] 10 mg PO DAILY@1100 01/29/21 01/29/21 Ergocalciferol [Vitamin D2 (1250 1,250 mcg PO TU 01/29/21 01/29/21 Mcg = 73908 Iu)] Multivitamins, Thera [Multivitamin 1 tab PO DAILY@1400 01/29/21 01/29/21 (formulary)] metFORMIN HCL ER [Glucophage XR] 500 mg PO DAILY@1100 01/29/21 01/29/21 Previous Rx's Medication Instructions Recorded Amoxicillin/Potassium Clav 1 tab PO Q12HR #20 tab 04/20/21 [Augmentin 875-125 Tablet] Acetaminophen [Tylenol] 500 mg PO Q4-6H PRN #24 tab 07/08/21 Baclofen 10 mg PO TID PRN #20 tab 07/08/21 Famotidine [Pepcid] 20 mg PO BID #20 tablet 07/08/21 Ondansetron [Zofran ODT] 4 mg PO Q8HR #20 tab 07/08/21 Sucralfate [Carafate] 1 gm PO BID 10 Days #200 ml 07/08/21 Cephalexin [Keflex] 500 mg PO Q8HR 5 Days #15 cap 12/23/21 Famotidine 40 mg PO BID 7 Days #14 tablet 12/23/21 Allergies Allergy/AdvReac Type Severity Reaction Status Date / Time dexamethasone [From Decadron] Allergy Anaphylaxis Verified 12/23/21 10:28 NSAIDS (Non-Steroidal Allergy Swelling Verified 12/23/21 10:28 Anti-Inflamma prednisone Allergy Anaphylaxis Verified 12/23/21 10:28 methylprednisolone AdvReac Anaphylaxis Verified 12/23/21 10:28 [From Solu-Medrol] pregabalin [From Lyrica] AdvReac Nausea & Verified 12/23/21 10:28 Vomiting & Diarrhea BANDAID ADHESIVE Allergy Rash/Hives Uncoded 12/23/21 10:28 Review of Systems ROS Statement: Those systems with pertinent positive or pertinent negative responses have been documented in the HPI. ROS Other: All systems not noted in ROS Statement are negative. Past Medical History Past Medical History: Asthma, Diabetes Mellitus Additional Past Medical History / Comment(s): chronic back pain, bulging disc in L5. nerve damage, PCOS, History of Any Multi-Drug Resistant Organisms: None Reported Past Surgical History: No Surgical Hx Reported Past Psychological History: Anxiety Smoking Status: Current every day smoker Past Alcohol Use History: None Reported Past Drug Use History: None Reported General Exam Limitations: no limitations General appearance: alert, in no apparent distress Head exam: Present: atraumatic, normocephalic, normal inspection Respiratory exam: Present: normal lung sounds bilaterally. Absent: respiratory distress, wheezes, rales, rhonchi, stridor Cardiovascular Exam: Present: regular rate, normal rhythm, normal heart sounds. Absent: systolic murmur, diastolic murmur, rubs, gallop, clicks Neurological exam: Present: alert, oriented X3, CN II-XII intact Psychiatric exam: Present: normal affect, normal mood Skin exam: Present: other (Blistering and sloughing of the tattoo on the left forearm. Pinpoint areas of erythema surrounding the tattoo. No swelling.) Course Vital Signs 12/23/21 12/23/21 10:23 12:19 Temperature 98.1 F 98.1 F Pulse Rate 74 74 Respiratory 16 16 Rate Blood Pressure 115/75 115/75 O2 Sat by Pulse 99 99 Oximetry Medical Decision Making - Medical Decision Making This is a 41-year-old female who presents to the emergency department for a possible allergic reaction. Discussed with the patient that steroids are the mainstay of treatment for an allergic reaction in terms of severe systemic symptoms. Triamcinolone was applied topically to the affected area. Patient states that she does not like how this felt. Discussed that she can continue with OTC Neosporin as she has been doing or try hydrocortisone cream. Prescription for Keflex and Pepcid provided. Given that she has a history of tattoo infection and she is diabetic, will treat her prophylactically for cellulitis, especially as there is an open wound on the affected area. It is also possible that she has already started to develop a cellulitis contributing to her symptoms. Pepcid was prescribed to be taken with Benadryl to treat the symptoms of an allergic reaction. Advised she continue taking Tylenol for pain relief. A starter pack for Tylenol #3 was provided to help with severe symptoms until the reaction begins to calm down. Return precautions reviewed in depth, the patient is instructed to return to the emergency department with any new, worsening, or concerning symptoms. Patient verbalized understanding. This case was discussed in detail with the attending ED physician. Presentation, findings, and treatment plan discussed in detail as well. Disposition Clinical Impression: Tattoo reaction Disposition: HOME SELF-CARE Instructions (If sedation given, give patient instructions): Urticaria (ED) Additional Instructions: Return to the emergency department with any new, worsening, or concerning symptoms. Take the antibiotic as prescribed for 5 days. Take the famotidine twice daily with Benadryl. You can try applying [id number] hydrocortisone cream to the affected area. Prescriptions: Famotidine 40 mg PO BID 7 Days #14 tablet Cephalexin [Keflex] 500 mg PO Q8HR 5 Days #15 cap Is patient prescribed a controlled substance at d/c from ED?: No Referrals: Jerman Soriano MD [Primary Care Provider] - 1-2 days
[2021-12-23] MEDS ORDERED: TRIAMCINOLONE ACET 0.1% OINTMENT 15 GM TUBE TOPICAL SCH (11:00)
[2021-12-23] MEDS ORDERED: ACET/COD 300 MG/30 MG STARTER PACK 6 TAB BTL PO STA (11:47)
== END 2021-12-23 12:20 | disposition home or self-care (01) ==
LOC: EC 09:58
DX: L81.8 Other specified disorders of pigmentation (principal); J45.909 Unspecified asthma, uncomplicated; E11.9 Type 2 diabetes mellitus without complications; F17.200 Nicotine dependence, unspecified, uncomplicated; Z88.8 Allergy status to other drugs, medicaments and biological substances; Z88.5 Allergy status to narcotic agent; Z88.6 Allergy status to analgesic agent